=== PATIENT | male | born 1975 | race Caucasian/White ===

== ENCOUNTER 2020-07-01 09:18 | Outpatient (CLI) | payer MEDICARE, MEDICAID, SELFPAY ==
[2020-07-01 10:00] LABS: Basophils Percent Auto 0.7 % (0.2-1.2); Eosinophils Absolute Auto 0.3 K/mm3 (0-0.3); Eosinophils Percent Auto 4.6 % (0-4.4); Hematocrit 43.6 % (42.0-52.0); Hemoglobin 15.5 g/dL (14.0-18.0); Immature Granulocyte Absolute 0.02 K/mm3 (0.00-0.031); Immature Granulocyte Percent A 0.4 % (0-0.5); Lymphocytes Absolute Auto 2.13 K/mm3 (0.9-3.2); Lymphocytes Percent Auto 37.4 % (18.3-44.2); Mean Corpuscular HGB Conc 35.6 g/dl (32-36); Mean Corpuscular Hemoglobin 34.4 pg (26-34); Mean Corpuscular Volume 96.7 fl (80-100); Mean Platelet Volume 9.2 fl (7.4-10.4); Monocytes Absolute Auto 0.7 K/mm3 (0.1-0.6); Monocytes Percent Auto 12.8 % (2.6-8.5); Neutrophils Absolute Auto 2.5 K/mm3 (1.3-6.7); Neutrophils Percent Auto 44.1 % (45.5-73.1); Platelet Count Result 245 k/mm3 (150-375); Red Blood Count 4.51 M/mm3 (4.6-6.20); Red Cell Distribution Width 12.4 % (11.5-14.5); White Blood Count 5.7 K/mm3 (4.5-10.0)
[2020-07-01 10:12] LABS: Alanine Aminotransferase 22 U/L (4-50); Albumin Level 4.3 g/dL (3.5-5.1); Alkaline Phosphatase 39 U/L (38-126); Anion Gap 5 mmol/L (8-16); Aspartate Amino Transferase 20 U/L (17-59); Bilirubin,Total 0.2 mg/dL (0.2-1.3); Blood Urea Nitrogen 11 mg/dL (9-20); Calcium 9.1 mg/dL (8.4-10.2); Carbon Dioxide 30 mmol/L (22-30); Chloride 92 mmol/L (98-107); Estimated Glomerular Filt Rate > 60; Glucose 103 mg/dL (75-110); Sodium 127 mmol/L (137-145)
[2020-07-03 22:37] LABS: Carbamazepine Tegretol 9.4 mcg/mL (4.0-12.0)
[2020-07-04 14:27] LABS: Levetiracetam Keppra 22.8 mcg/mL (12.0-46.0)
== END 2020-07-01 09:19 | disposition home or self-care (01) ==
LOC: ANHLAB 09:29
PROVIDERS: PCP Internal Medicine
DX: Z79.899 Other long term (current) drug therapy (principal); G40.219 Localization-related (focal) (partial) symptomatic epilepsy and epileptic syndromes with complex partial seizures, intractable, without status epilepticus
CPT/HCPCS: 36415; 80053; 80156; 80164; 80165; 80177; 85025

== ENCOUNTER 2020-12-22 16:54 | Outpatient (CLI) | payer MEDICARE, MEDICAID, SELFPAY ==
[2020-12-22 17:33] LABS: Basophils Percent Auto 0.3 % (0.2-1.2); Eosinophils Absolute Auto 0.2 K/mm3 (0-0.3); Hematocrit 44.6 % (42.0-52.0); Hemoglobin 15.7 g/dL (14.0-18.0); Immature Granulocyte Absolute 0.04 K/mm3 (0.00-0.031); Immature Granulocyte Percent A 0.5 % (0-0.5); Lymphocytes Percent Auto 19.5 % (18.3-44.2); Mean Corpuscular HGB Conc 35.2 g/dl (32-36); Mean Corpuscular Hemoglobin 33.5 pg (26-34); Mean Corpuscular Volume 95.1 fl (80-100); Mean Platelet Volume 9.4 fl (7.4-10.4); Monocytes Absolute Auto 0.6 K/mm3 (0.1-0.6); Monocytes Percent Auto 7.1 % (2.6-8.5); Neutrophils Absolute Auto 6.1 K/mm3 (1.3-6.7); Neutrophils Percent Auto 70.6 % (45.5-73.1); Platelet Count Result 225 k/mm3 (150-375); Red Blood Count 4.69 M/mm3 (4.6-6.20); Red Cell Distribution Width 12.5 % (11.5-14.5); White Blood Count 8.7 K/mm3 (4.5-10.0)
[2020-12-22 17:44] LABS: Alanine Aminotransferase 21 U/L (4-50); Alkaline Phosphatase 44 U/L (38-126); Anion Gap 13 mmol/L (8-16); Aspartate Amino Transferase 24 U/L (17-59); Bilirubin,Total 0.4 mg/dL (0.2-1.3); Blood Urea Nitrogen 11 mg/dL (9-20); Calcium 9.4 mg/dL (8.4-10.2); Carbon Dioxide 23 mmol/L (22-30); Chloride 98 mmol/L (98-107); Estimated Glomerular Filt Rate > 60; Glucose 104 mg/dL (75-110); Potassium 4.1 mmol/L (3.4-5.0); Sodium 134 mmol/L (137-145)
[2020-12-28 16:53] LABS: Levetiracetam Keppra 14.1 mcg/mL (12.0-46.0)
[2020-12-29 06:52] LABS: Carbamazepine Tegretol 8.9 mcg/mL (4.0-12.0)
== END 2020-12-22 16:55 | disposition home or self-care (01) ==
PROVIDERS: PCP Internal Medicine
DX: G40.219 Localization-related (focal) (partial) symptomatic epilepsy and epileptic syndromes with complex partial seizures, intractable, without status epilepticus (principal)
CPT/HCPCS: 36415; 80053; 80156; 80164; 80165; 80177; 80346; 85025; G0480

== ENCOUNTER 2021-03-09 02:43 | Day surgery (SDC) | payer MEDICARE, MEDICAID, SELFPAY ==
[2021-02-24 13:08] VITALS: BMI 29.2
--- NOTE | 2021-03-09 07:30 | WPDANESEPPF ---
Anes - Initial Pre Proc Eval Procedure: Operation Date: 03/09/21 12:45 Proposed Procedures p Colonoscopy - Isaías Cohen MD Date/Time: 03/09/21 07:30 Surgeon: Isaías Cohen MD Pre Op Diagnosis: rectal bleeding Patient Data Age: 46 Gender: M Height: 1.75 m Weight: 90 kg Allergies Allergy/AdvReac Type Severity Reaction Status Date / Time Penicillins Allergy Unknown Rash Verified 03/09/21 11:36 Home Medications Medication Instructions Recorded Confirmed Type carbamazepine 200 mg tablet 200 mg PO TID tablet 01/14/21 02/24/21 History clonazepam 1 mg tablet 1.5 mg PO BID tablet 01/14/21 02/24/21 History lorazepam 0.5 mg tablet 0.5 mg PO DAILY PRN 01/14/21 02/24/21 History multivitamin 1 tablet PO DAILY 01/14/21 02/24/21 History divalproex 500 mg tablet,delayed 1,000 mg PO Q12H tablet 02/15/21 02/24/21 History release levetiracetam 750 mg tablet 750 mg PO BID tablet 02/15/21 02/24/21 History sildenafil (pulm.hypertension) 20 60 mg PO DAILY PRN #30 tablet MDD 02/15/21 02/24/21 Rx mg tablet 100mg per 24 hours Patient hx anesthesia problems: none Family hx anesthesia problems: none PMFSH Past Medical History Medical History (Updated 02/15/21 @ 13:39 by Lj Hawk DO) Chicken pox Seizure disorder Surgical History Surgical History (Updated 01/14/21 @ 11:38 by Duyen Hong CMA) History of placement of ear tubes 1983 Family History Family History (Updated 03/12/18 @ 08:12 by DOCTOR UNKNOWN) Mother Patient's mother is in good health Father Patient's father is in good health Social History Social History (Updated 02/15/21 @ 13:11 by Duyen Hong CMA) Smoking status: Former smoker Alcohol intake: never Substance use: current Substance use type: marijuana Living arrangements: with roommate(s) Spiritual care concerns: No Anes - Eval Final PreProcedure Day of Procedure 03/09/21 07:30 Patient weight: overweight Heart: regular rate and rhythm Lungs: clear to auscultation and normal air movement Airway: Mallampati scale class II Neurological: alert and oriented Last oral intake: >/= 8 hours ASA classification: III Emergent: no Anesthetic plan: proceed Anesthesia type and monitoring: general GIVS and standard monitoring Informed Consent: The patient's anesthetic plan and its attendant risks and benefits were discussed with the patient/family/POA. Questions were solicited and answers provided to the satisfaction of the patient/family/POA.
[2021-03-09 11:37] VITALS: BP 118/87; PULSE 63; RESP 18; TEMP 36.7; O2SAT 100
[2021-03-09] MEDS: LACTATED RINGERS 1,000 ML 150 ML IV CONT (11:50)
--- NOTE | 2021-03-09 12:02 | PM.HPGS ---
History of Present Illness History of Present Illness Consent: Risks, benefits, and alternatives have been discussed and questions answered. Patient agrees to proceed with procedure. Chief complaint: rectal bleeding Narrative: Ge Condon is a 46 year old male with intermittent rectal bleeding, never had colonoscopy Review of Systems Constitutional: Constitutional: Denies headache(s) and Denies weakness Eyes: Eyes: Denies blurry vision ENT: Reports Normal hearing present, Denies headache(s) and Denies neck pain Cardiovascular: Cardiovascular: Denies chest pain and Denies dyspnea Respiratory: Respiratory: Denies dyspnea Gastrointestinal: Gastrointestinal: Reports no additional gastrointestinal complaints Genitourinary: Genitourinary: Denies dysuria Musculoskeletal: Musculoskeletal: Denies neck pain Integumentary/Breasts: Skin/Breast: Denies dry skin Neurologic: Reports Normal hearing present, Denies headache(s) and Denies weakness Psychiatric: Psychiatric: Denies anxiety Endocrine: Endocrine: Denies change in body appearance Hematologic/Lymphatic: Hematologic/Lymphatic: Denies easy bleeding Allergic/Immunologic: Allergic/Immunologic: Denies urticaria PMFSH Past Medical History Medical History (Updated 02/15/21 @ 13:39 by Lj Hawk DO) Chicken pox Seizure disorder Surgical History Surgical History (Updated 01/14/21 @ 11:38 by Duyen Hong [facility]) History of placement of ear tubes 1983 Family History Family History (Updated 03/12/18 @ 08:12 by DOCTOR UNKNOWN) Mother Patient's mother is in good health Father Patient's father is in good health Social History Social History (Updated 02/15/21 @ 13:11 by Duyen Hong [facility]) Smoking status: Former smoker Alcohol intake: never Substance use: current Substance use type: marijuana Living arrangements: with roommate(s) Spiritual care concerns: No Meds Home Medications and Allergies Home Medications Medication Instructions Recorded Confirmed Type carbamazepine 200 mg tablet 200 mg PO TID tablet 01/14/21 02/24/21 History clonazepam 1 mg tablet 1.5 mg PO BID tablet 01/14/21 02/24/21 History lorazepam 0.5 mg tablet 0.5 mg PO DAILY PRN 01/14/21 02/24/21 History multivitamin 1 tablet PO DAILY 01/14/21 02/24/21 History divalproex 500 mg tablet,delayed 1,000 mg PO Q12H tablet 02/15/21 02/24/21 History release levetiracetam 750 mg tablet 750 mg PO BID tablet 02/15/21 02/24/21 History sildenafil (pulm.hypertension) 20 60 mg PO DAILY PRN #30 tablet MDD 02/15/21 02/24/21 Rx mg tablet 100mg per 24 hours Allergies Allergy/AdvReac Type Severity Reaction Status Date / Time Penicillins Allergy Unknown Rash Verified 03/09/21 11:36 Vital Signs Vital Signs - 24 hr 03/09/21 11:37 Temperature 98.0 F Pulse Rate 63 Respiratory Rate 18 Blood Pressure 118/87 Pulse Oximetry 100 Exam Const: General: comfortable and no acute distress HENMT: General nose exam: Normal nares present Eyes: General: appearance normal, both eyes and all related structures Neck: Neck: no JVD Resp: Auscultation: clear to auscultation bilaterally Cardio: Rate: regular rate Rhythm: regular rhythm GI: Inspection: non-distended GI Palp: Yes Soft to palpation Skin: General skin exam: normal color Neuro: General: gait normal Speech: normal speech Extrem: General: normal to inspection Psych: Mental Status: mental status grossly normal Assessment and Plan Assessment and plan (1) Rectal hemorrhage: Code(s): K62.5 - Hemorrhage of anus and rectum Status: Acute Assessment and Plan: colonoscopy
--- NOTE | 2021-03-09 12:10 | WPDANESEPPF ---
Anes - Initial Pre Proc Eval Procedure: Operation Date: 03/09/21 12:45 Proposed Procedures p Colonoscopy - Isaías Cohen MD Date/Time: 03/09/21 12:10 Surgeon: Isaías Cohen MD Pre Op Diagnosis: rectal bleeding Patient Data Age: 46 Gender: M Height: 1.75 m Weight: 91.5 kg Last Vital Signs Temp 98.0 F 03/09/21 11:37 Pulse 63 03/09/21 11:37 Resp 18 03/09/21 11:37 BP 118/87 03/09/21 11:37 Pulse Ox 100 03/09/21 11:37 Allergies Allergy/AdvReac Type Severity Reaction Status Date / Time Penicillins Allergy Unknown Rash Verified 03/09/21 11:36 Home Medications Medication Instructions Recorded Confirmed Type carbamazepine 200 mg tablet 200 mg PO TID tablet 01/14/21 02/24/21 History clonazepam 1 mg tablet 1.5 mg PO BID tablet 01/14/21 02/24/21 History lorazepam 0.5 mg tablet 0.5 mg PO DAILY PRN 01/14/21 02/24/21 History multivitamin 1 tablet PO DAILY 01/14/21 02/24/21 History divalproex 500 mg tablet,delayed 1,000 mg PO Q12H tablet 02/15/21 02/24/21 History release levetiracetam 750 mg tablet 750 mg PO BID tablet 02/15/21 02/24/21 History sildenafil (pulm.hypertension) 20 60 mg PO DAILY PRN #30 tablet MDD 02/15/21 02/24/21 Rx mg tablet 100mg per 24 hours Patient hx anesthesia problems: none Family hx anesthesia problems: none PMFSH Past Medical History Medical History (Updated 02/15/21 @ 13:39 by Lj Hawk DO) Chicken pox Seizure disorder Surgical History Surgical History (Updated 01/14/21 @ 11:38 by Duyen Hong CMA) History of placement of ear tubes 1983 Family History Family History (Updated 03/12/18 @ 08:12 by DOCTOR UNKNOWN) Mother Patient's mother is in good health Father Patient's father is in good health Social History Social History (Updated 02/15/21 @ 13:11 by Duyen oHng CMA) Smoking status: Former smoker Alcohol intake: never Substance use: current Substance use type: marijuana Living arrangements: with roommate(s) Spiritual care concerns: No Anes - Eval Final PreProcedure Day of Procedure 03/09/21 12:10 Patient weight: overweight Heart: regular rate and rhythm Lungs: clear to auscultation Airway: Mallampati scale class II Neurological: alert and oriented Last oral intake: >/= 8 hours ASA classification: III Emergent: no Anesthetic plan: proceed Anesthesia type and monitoring: general GIVS and standard monitoring Informed Consent: The patient's anesthetic plan and its attendant risks and benefits were discussed with the patient/family/POA. Questions were solicited and answers provided to the satisfaction of the patient/family/POA.
[2021-03-09 12:50] VITALS: BP 108/76; PULSE 53; RESP 14; O2SAT 98
[2021-03-09 13:00] VITALS: BP 110/85; PULSE 64; RESP 17; O2SAT 97
[2021-03-09 13:10] VITALS: BP 125/85; PULSE 56; RESP 17; O2SAT 100
== END 2021-03-09 13:20 | disposition home or self-care (01) ==
PROVIDERS: PCP Internal Medicine; Visit Provider Internal Medicine Gastroenterology
PROC: 0DJD8ZZ Inspection of Lower Intestinal Tract, Via Natural or Artificial Opening Endoscopic (ICD-10-PCS; CPT 45378; principal; 2021-03-09 12:45)
DX: K92.1 Melena (principal); D12.0 Benign neoplasm of cecum; D12.5 Benign neoplasm of sigmoid colon; K57.30 Diverticulosis of large intestine without perforation or abscess without bleeding; K64.8 Other hemorrhoids; G40.909 Epilepsy, unspecified, not intractable, without status epilepticus; Z87.891 Personal history of nicotine dependence; F12.90 Cannabis use, unspecified, uncomplicated
CPT/HCPCS: 45385; 88305; J2704; J7120

== ENCOUNTER 2021-05-25 10:49 | Inpatient (IN) | payer OTHER, SELFPAY ==
[2021-05-25] VITALS (11 sets, daily range): BP systolic 90–150; BP diastolic 50–105; PULSE 85–122; RESP 16–25; TEMP 36.6–37.7; O2SAT 94–100; BMI 32.6
--- NOTE | ~2021-05-25 | XR_ITS ---
EXAMINATION: XR lumbar puncture diagnostic EXAM DATE: 05/25/2021 15:08 INDICATION: Altered mental status. TECHNIQUE: Emergency room physician Katie Harrison MD obtained consent for this procedure verbally , reportedly from patient's daughter over the telephone. Radiologist Venkata Lew M.D. performed the procedure. Pulsed dose reduction fluoroscopy, with fluoroscopic time of 0.1 minutes. A total of 6 im ages obtained for the exam. DAP 0.36 Gycm2. 4 imaging technologist were present during this proce dure. A timeout procedure was performed. The back was prepped in standard sterile fashion with Betadine. L4-5 entry site was chosen under fluoroscopic guidance. The thecal sac was then accessed from a righ t paracentral approach using a 3.5 22G needle. Opening pressure determined to be 16 mmHg, normal. A total of 11 mL of clear cerebral spinal fluid we re then drained and placed in 4 consecutive vials which were labeled and sent to lab for analysis. T here were no immediate complications. IMPRESSION: Status post fluoroscopic guided lumbar puncture. Reviewed, dictated and finalized at location A. JOCKEY
--- NOTE | ~2021-05-25 | CT_ITS ---
EXAMINATION: CT facial & cervical spine wo DATE: 05/25/2021 11:22 INDICATION: Trauma. Altered mental status. History of seizure. TECHNIQUE: Computed tomography (CT) of the maxillofacial region and cervical spine was performed with out intravenous contrast. The dose-length product was 489.64 mGy-cm. Automated exposure control and i terative reconstruction technique were employed. COMPARISON: No prior studies for comparison. FINDINGS: MAXILLOFACIAL CT: There is scalp hematoma of the left frontal region. No acute maxillofacial fracture is identified. Ma ndible is intact. Pterygoid plates and zygomatic arch is within normal limits. Temporal mandibular alex ints are symmetric. There is mild mucosal thickening of the sinuses. CERVICAL SPINE CT: Normal cervical alignment. Odontoid process within normal limits. Craniovertebral junction within nor mal limits. Mild levocurvature of the cervical spine. No evidence for perched facet. No significant p araspinal soft tissue abnormality. IMPRESSION: 1. No acute abnormality of the facial bones or cervical spine. Reviewed, dictated and finalized at location B. CER
--- NOTE | ~2021-05-25 | XR_ITS ---
XR chest 1V portable 05/25/2021 11:42 Indication: Altered mental status. Poor historian. Procedure: AP portable chest Comparison: Comparison to multiple prior studies sequentially, with oldest reviewed study dated 11/07. Findings: Cardiomegaly with mild interstitial edema. No pleural effusion or pneumothorax. No acute os seous abnormality. Impression: 1: Cardiomegaly with mild interstitial edema. Reviewed, dictated and finalized at location B. NISTRATIVE COORDINATOR Impression: 1: Cardiomegaly with mild interstitial edema.
--- NOTE | ~2021-05-25 | XR_ITS ---
EXAMINATION: XR chest 1V portable DATE: 05/26/2021 05:55 INDICATION: Elevated troponins TECHNIQUE: frontal view of the chest was obtained. COMPARISON: Chest radiograph dated 05/25/2021 FINDINGS: The lungs remain clear with no focal airspace opacities, pulmonary edema, pleural effusion or pneumot horax. The cardiomediastinal silhouette is normal. Visualized bones and soft tissues are unremarkable . IMPRESSION: 1. No acute cardiopulmonary disease. Reviewed, dictated and finalized at location A. TER SKI EDGE
--- NOTE | ~2021-05-25 | US_ITS ---
US abdomen limited INDICATION: Elevated liver function tests PROCEDURE: Realtime right upper abdominal ultrasound. COMPARISON: No prior studies for comparison. FINDINGS: The pancreas is normal without focal mass or pancreatic ductal dilation. Liver echotexture is normal without focal mass or intrahepatic biliary dilatation. There is normal directional flow i n the portal vein. The gallbladder is normal without stones, gallbladder wall thickening or pericholecystic fluid. Comm on bile duct measures 4.6 mm. No sonographic Julien's sign. IMPRESSION: 1: Normal limited abdominal ultrasound. Reviewed, dictated and finalized at location B. GROUND OPERATOR
--- NOTE | ~2021-05-25 | CT_ITS ---
EXAMINATION: CT brain wo con DATE: 05/25/2021 11:22 INDICATION: Altered mental status TECHNIQUE: Computed tomography (CT) of the head was performed without intravenous contrast. The dose- length product was 1059.33 mGy-cm. Automated exposure control and iterative reconstruction technique were employed. COMPARISON: CT dated 03/21/2016 FINDINGS: There is chronic right parietal, occipital and temporal lobe infarctions with encephalomala leslie. No ventriculomegaly or midline shift. No acute intracranial hemorrhage, infarction, mass or mass effect. Basilar cisterns are patent. Paranasal sinuses are unremarkable. No depressed skull fracture s. IMPRESSION: 1. No acute intracranial abnormality. 2: Chronic large infarction with encephalomalacia involving the right parietal, occipital and tempor al lobes. Reviewed, dictated and finalized at location B. FICIAL LIMB FITTER IMPRESSION: 1. No acute intracranial abnormality. 2: Chronic large infarction with encephalomalacia involving the right parietal , occipital and temporal lobes.
[2021-05-25] MEDS: LORazepam INJ (*CRX) 2 MG/ML VIAL IV PUSH (10:55)
--- NOTE | 2021-05-25 10:58 | ECG_ITS ---
Measurements Intervals [place] Rate: 96 P: 42 [place]: 160 QRS: -37 QRSD: 101 T: 64 QT: 360 QTc: 457 Interpretive Statements SINUS RHYTHM LEFT AXIS DEVIATION BORDERLINE ST ABNORMALITY- ANTEROLATERAL LEADS BORDERLINE ECG Electronically Signed On 05-25-2021 12:37:36 RESEARCH STATISTICIAN by Brannon Martinez D.O.
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
[2021-05-25 11:51] LABS: Basophils Percent Auto 0.2 % (0.2-1.2); Hematocrit 46.1 % (42.0-52.0); Hemoglobin 17.4 g/dL (14.0-18.0); Immature Granulocyte Absolute 0.11 K/mm3 (0.00-0.031); Immature Granulocyte Percent A 0.6 % (0-0.5); Lymphocytes Absolute Auto 0.88 K/mm3 (0.9-3.2); Lymphocytes Percent Auto 4.5 % (18.3-44.2); Mean Corpuscular HGB Conc 37.7 g/dl (32-36); Mean Corpuscular Hemoglobin 33.9 pg (26-34); Mean Corpuscular Volume 89.7 fl (80-100); Mean Platelet Volume 9.6 fl (7.4-10.4); Monocytes Absolute Auto 2.9 K/mm3 (0.1-0.6); Monocytes Percent Auto 14.8 % (2.6-8.5); Neutrophils Absolute Auto 15.6 K/mm3 (1.3-6.7); Neutrophils Percent Auto 79.9 % (45.5-73.1); Platelet Count Result 281 k/mm3 (150-375); Red Blood Count 5.14 M/mm3 (4.6-6.20); Red Cell Distribution Width 12.6 % (11.5-14.5); White Blood Count 19.5 K/mm3 (4.5-10.0)
[2021-05-25 11:52] LABS: Acetaminophen < 10 ug/mL (10-30); Ammonia < 9 umol/L (9-30); Ethanol < 10 mg/dL (<10); Salicylate < 1.0 mg/dL (2-20)
--- NOTE | 2021-05-25 11:58 | PC.NURSE ---
Addendum entered by Dina Ortiz RN 05/25/21 11:58: VORB at 1055 Original Note: VORB from Dr. Harrison to pull 2 mg Ativan for patient
[2021-05-25] MEDS: SODIUM CHLORIDE 0.9% IV 1,000 ML 999 ML IV CONT ×4 (11:59→15:49)
[2021-05-25 12:05] LABS: Lactic Acid Reflex 2.7 mmol/L (0.7-2.1)
[2021-05-25 12:07] LABS: Prothrombin Time 13.2 Seconds (11.1-14.7)
[2021-05-25 12:08] LABS: Alanine Aminotransferase 81 U/L (4-50); Albumin Level 5.3 g/dL (3.5-5.1); Alkaline Phosphatase 55 U/L (38-126); Anion Gap 13 mmol/L (8-16); Aspartate Amino Transferase 298 U/L (17-59); Blood Urea Nitrogen 16 mg/dL (9-20); Calcium 10.4 mg/dL (8.4-10.2); Carbon Dioxide 22 mmol/L (22-30); Chloride 96 mmol/L (98-107); Estimated CRCL calculation 102 ml/min; Estimated Glomerular Filt Rate > 60; Glucose 128 mg/dL (65-110); Partial Thromboplastin Time 27.6 SECONDS (22.3-36.8); Potassium 3.3 mmol/L (3.4-5.0); Sodium 131 mmol/L (137-145)
[2021-05-25 12:08] LABS: Amphetamine Screen Urine Negative (Negative); Barbiturate Screen Urine Negative (Negative); Benzodiazepines Screen Urine Negative (Negative); Cannabinoid Screen Urine Positive (Negative); Cocaine Screen Urine Negative (Negative); Methadone Screen Urine Negative (Negative); Opiate Screen Urine Negative (Negative); Phencyclidine Screen Urine Negative (Negative)
[2021-05-25 12:12] LABS: Add Urine Microscopic? YES; Appearance Urine Cloudy (Clear); Bacteria Urine Trace /hpf; Bilirubin Urine Negative (Negative); Blood Urine 3+ (Negative); Color Urine Amber (Yellow); Glucose Urine UA Negative (Negative); Hyaline Casts Urine 20-29 /lpf; Ketones Urine 1+ mg/dL (Negative); Leukocyte Esterase Ur Negative LEU/UL (Negative); Mucus Urine Few /lpf; Nitrate Urine Negative (Negative); Protein Urine 3+ mg/dL (Negative); Specific Grav Ur 1.025 (1.001-1.035); Urobilinogen Urine Negative mg/dL (<2.0)
[2021-05-25 12:32] LABS: Valproic Acid 13.8 ug/mL (50-120)
[2021-05-25] MEDS: fentaNYL CITRATE INJ (*CRX) 100 MCG/2 ML VIAL 50 MCG IV PUSH (13:28)
[2021-05-25] MEDS: LORazepam INJ (*CRX) 2 MG/ML VIAL 1 MG IV PUSH (13:28)
[2021-05-25 13:44] LABS: CRP 4.7 mg/dL (<1.0)
[2021-05-25 13:45] LABS: Creatine Kinase > 16000 U/L (55-170)
[2021-05-25 13:50] LABS: NT Pro B Type Natriuretic Pept 5140 pg/mL (5-100)
--- NOTE | 2021-05-25 14:04 | PC.NURSE ---
Consent obtained by phone from patients sister Lady by Dr. Harrison for lumbar puncture
--- NOTE | 2021-05-25 14:20 | PC.NURSE ---
Pt to radiology for LP
[2021-05-25 14:45] LABS: Reflex Lactic Acid Yes or No Add Lactic
[2021-05-25] MEDS: ACYCLOVIR SODIUM IVPB 800 MG in DEXTROSE 5% IN WATER 250 ML 266 MG IVPB ×2 (15:00→22:03)
[2021-05-25 15:17] LABS: Glucose CSF 90 mg/dL (40-70); Total Protein CSF 65 mg/dL (12-60)
--- NOTE | 2021-05-25 15:25 | WPDCNINT ---
Assessment and Plan Assessment and plan (1) Sepsis: Code(s): A41.9 - Sepsis, unspecified organism Status: Acute Assessment and Plan: Patient has elevated WBC, lactic acid afebrile making his diagnosis consistent with sepsis Although these findings can be explained by seizures or status epilepticus, there is no obvious history of either happening this morning or last night Other possible etiologies are either meningitis or encephalitis Patient has gone for LP by IR under guidance He has been started on dexamethasone, empiric antibiotics in the form of cefepime, vancomycin and acyclovir which will be continued Patient received IV fluids which will be continued Monitor lactic acid level Blood cultures, urine culture (2) Rhabdomyolysis: Code(s): M62.82 - Rhabdomyolysis Status: Acute Assessment and Plan: Etiology unknown although seizures or status epilepticus can explain Other possibility is trauma or fall as patient has a bruise on his left forehead but patient denies any history consistent consistent with fight or trauma IV fluids with bicarb although will have to be cautious with IV fluids as patient has elevated BNP and congestion on his chest x-ray although patient is on room air and has no respiratory distress (3) Elevated troponin: Code(s): R77.8 - Other specified abnormalities of plasma proteins Status: Acute Assessment and Plan: Patient does not report any chest pain although history is unreliable Check echo, serial troponin Start aspirin and metoprolol Hold statin who elevated LFTs Hold anticoagulation as patient is getting lumbar puncture done today cardiology consulted in ED EKG reviewed (4) Seizure disorder: Code(s): G40.909 - Epilepsy, unspecified, not intractable, without status epilepticus Status: Acute Assessment and Plan: Valproic level is sub therapeutic Check carbamazepine level Continue home medications of carbamazepine, Keppra and valproic acid Seizure precaution P.r.n. Ativan (5) Encephalopathy: Code(s): G93.40 - Encephalopathy, unspecified Status: Acute Assessment and Plan: Etiology is not clear and limited history has made it difficult. I suspect patient does have some baseline psychiatric disorder or this could be from meningitis encephalitis or postictal after seizure. But patient does not have classical presentation as he is alert awake following commands but does not provide any meaningful history. Ammonia and TSH was normal Head CT was Avoid sedatives Seizure precaution Resumes his anti epileptic drugs and check Tegretol level. His valproic acid level was subtherapeutic Await LB results and treat empirically for meningitis and encephalitis (6) Elevated liver enzymes: Code(s): R74.8 - Abnormal levels of other serum enzymes Status: Acute Assessment and Plan: Elevated liver enzymes likely secondary to rhabdomyolysis Monitor for now (7) Electrolyte abnormality: Code(s): E87.8 - Other disorders of electrolyte and fluid balance, not elsewhere classified Status: Acute Assessment and Plan: Replace Potassium Additional Plan DVT prophylaxis -Lovenox subQ Code Status - Full Code I tried to call patient's dad to obtain more history but no answer on the phone number listed [employer] Consult Note Consult date: 05/26/21 HPI: Ge Condon is a 46 year old male with past medical history of encephalitis diagnosis more than 20 years ago and resultant epilepsy who is managed at [facility] epilepsy center and is on multiple AEDs was brought in with altered mental status. Patient himself is unable to provide any meaningful history and history was obtained from ER physician sign-out and chart. Per ED physician, EMS was called to the patient's residence this morning for evaluation of altered mental status, panic attack. At the time of assessment, patient was a
[2021-05-25] MEDS: KCL 40 MEQ/WATER 100 ML 100 ML 25 ML IVPB (15:49)
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
[2021-05-25 15:51] LABS: CSF source CSF
[2021-05-25 15:52] LABS: Appearance CSF Clear (Clear); Color CSF Colorless (Colorless); Lymphocytes CSF 54 % (40-80); Monocytes CSF 46 % (15-45); Nucleated Cell CSF 11 /uL (0-5); Red Blood Cell CSF 32 (0-2)
--- NOTE | 2021-05-25 16:24 | PC.NURSE ---
Pt sent to ICU with vancomycin, KCL and IVF infusing
--- NOTE | 2021-05-25 16:25 | ADMGEN ---
This patient, Ge Condon, was admitted to Intensive Care Unit-8 at 1620 on 05/25/2021. Report received from Darshana. Patient/family oriented to hospital policies and general routines including ID bracelet, bed and alarms, visiting hours, pain management, procedures, bathroom and other care routines, personal items, smoking policy, roomservice/diet, and visiting hours. Information on how to activate the Rapid Response Team has been discussed. Patient/Family are encouraged to report perceived risks to care and to ask questions if they do not understand what they are told or what they should do.
[2021-05-25] MEDS: SODIUM BICARBONATE 8.4% 150 MEQ in WATER, STERILE FOR INJECTION 950 ML 125 MEQ IV CONT (16:41)
[2021-05-25] MEDS: ASPIRIN 325 MG TABLET PO (16:41)
[2021-05-25] MEDS: DIVALPROEX SODIUM DR 250 MG TABEC 1000 MG PO (16:42)
[2021-05-25 17:15] LABS: Lactic Acid 1.8 mmol/L (0.7-2.1); Lactic Acid Reflex 1.8 mmol/L (0.7-2.1)
[2021-05-25 17:22] LABS: Anion Gap 10 mmol/L (8-16); Blood Urea Nitrogen 10 mg/dL (9-20); Calcium 8.9 mg/dL (8.4-10.2); Carbon Dioxide 19 mmol/L (22-30); Chloride 101 mmol/L (98-107); Estimated CRCL calculation 146 ml/min; Estimated Glomerular Filt Rate > 60; Glucose 143 mg/dL (65-110); Potassium 3.8 mmol/L (3.4-5.0); Sodium 130 mmol/L (137-145)
[2021-05-25] MEDS: LORazepam INJ (*CRX) 2 MG/ML VIAL 5 MG IV PUSH (18:53)
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
[2021-05-25] MEDS: METOPROLOL TARTRATE 25 MG TABLET PO (20:19)
[2021-05-25] MEDS: levETIRAcetam Tablet 250 MG, levETIRAcetam Tablet 500 MG 750 MG PO (20:22)
[2021-05-25 21:11] LABS: Anion Gap 8 mmol/L (8-16); Blood Urea Nitrogen 9 mg/dL (9-20); Calcium 8.6 mg/dL (8.4-10.2); Carbon Dioxide 22 mmol/L (22-30); Chloride 100 mmol/L (98-107); Estimated CRCL calculation 172 ml/min; Estimated Glomerular Filt Rate > 60; Glucose 125 mg/dL (65-110); Phosphorus 3.2 mg/dL (2.5-4.5); Potassium 3.9 mmol/L (3.4-5.0); Sodium 130 mmol/L (137-145)
[2021-05-25] MEDS: carBAMazepine 200 MG TABLET PO (22:04)
[2021-05-25 22:18] LABS: HAV RESULT Negative (Negative); Hepatitis B Core IgM Result Negative (Negative); Hepatitis B Surface Antigen Negative (Negative)
[2021-05-25 22:52] LABS: Hepatitis C Virus Antibody Negative (Negative)
[2021-05-26] VITALS (13 sets, daily range): BP systolic 108–136; BP diastolic 71–100; PULSE 74–96; RESP 16–20; TEMP 36.3–36.7; O2SAT 93–98
[2021-05-26] MEDS: SODIUM BICARBONATE 8.4% 150 MEQ in WATER, STERILE FOR INJECTION 950 ML 125 MEQ IV CONT ×3 (01:20→21:42)
[2021-05-26 05:11] LABS: Basophils Percent Auto 0.2 % (0.2-1.2); Eosinophils Percent Auto 0.1 % (0-4.4); Hematocrit 38.5 % (42.0-52.0); Hemoglobin 14.4 g/dL (14.0-18.0); Immature Granulocyte Absolute 0.06 K/mm3 (0.00-0.031); Immature Granulocyte Percent A 0.4 % (0-0.5); Lymphocytes Absolute Auto 2.04 K/mm3 (0.9-3.2); Lymphocytes Percent Auto 13.7 % (18.3-44.2); Mean Corpuscular HGB Conc 37.4 g/dl (32-36); Mean Corpuscular Hemoglobin 34.4 pg (26-34); Mean Corpuscular Volume 91.9 fl (80-100); Mean Platelet Volume 9.3 fl (7.4-10.4); Monocytes Absolute Auto 2.2 K/mm3 (0.1-0.6); Monocytes Percent Auto 14.7 % (2.6-8.5); Neutrophils Absolute Auto 10.6 K/mm3 (1.3-6.7); Neutrophils Percent Auto 70.9 % (45.5-73.1); Platelet Count Result 204 k/mm3 (150-375); Red Blood Count 4.19 M/mm3 (4.6-6.20); Red Cell Distribution Width 13.2 % (11.5-14.5); White Blood Count 14.9 K/mm3 (4.5-10.0)
[2021-05-26 05:31] LABS: Alanine Aminotransferase 71 U/L (4-50); Alkaline Phosphatase 37 U/L (38-126); Anion Gap 6 mmol/L (8-16); Aspartate Amino Transferase 153 U/L (17-59); Bilirubin,Total 0.9 mg/dL (0.2-1.3); Blood Urea Nitrogen 9 mg/dL (9-20); Calcium 8.7 mg/dL (8.4-10.2); Carbon Dioxide 26 mmol/L (22-30); Chloride 98 mmol/L (98-107); Estimated CRCL calculation 146 ml/min; Estimated Glomerular Filt Rate > 60; Glucose 107 mg/dL (65-110); Magnesium 1.9 mg/dL (1.6-2.3); Phosphorus 3.2 mg/dL (2.5-4.5); Potassium 3.6 mmol/L (3.4-5.0); Sodium 130 mmol/L (137-145)
--- NOTE | 2021-05-26 06:00 | ECHO_ITS ---
Patient Info Name: Ge Condon Age: 46 years : 1975 Gender: Male Ht: 68 in Wt: 214 lbs BSA: 2.19 m2 HR: 78 bpm BP: 132 / 90 mmHg Heart Rhythm: Sinus Rhythm Technical Quality: Good Exam Date: 05/26/2021 3:52 PM Exam Location: [facility] Pulmonary Exam Room: 305 Patient Status: Inpatient Admit Date: 05/25/2021 Staff Ordering Physician: Katie Harrison MD Upstairs Maid: Aniya Blanco RDCS Attending Provider: Niall Rocha MD Referring Physician: Hunter RICHARDSON; Exam Type: CA echo doppler color flow Study Info Indications - ELEVATED TROPONINS Complete two-dimensional, color flow and Doppler transthoracic echocardiogram is performed. Summary 1. Complete two-dimensional, color flow and Doppler transthoracic echocardiogram is performed. 2. Normal left ventricular size with mild concentric hypertrophy. Good systolic function of all segments with an ejection fraction of 60-65%. Normal diastolic function. 3. There is mild mitral valve regurgitation. 4. Left atrial chamber dimension is mildly enlarged. 5. No pulmonary hypertension, estimated pulmonary arterial systolic pressure is 32 mmHg. 6. Normal sinus rhythm. Left Ventricle Left ventricular chamber dimension is normal. Left ventricular systolic function is normal, estimated at 60-65%. There is mildly increased left ventricular wall thickness. Left ventricular septal wall motion is normal. The left ventricular diastolic function is normal. Right Ventricle Right ventricular chamber dimension is normal. Right ventricular systolic function is normal. Left Atria Left atrial chamber dimension is mildly enlarged. Right Atria Right atrial chamber dimension is normal. Aortic Valve The aortic valve is trileaflet. There is no aortic valve sclerosis. There is no aortic valve stenosis. There is no aortic valve regurgitation. Pulmonic Valve The pulmonic valve is normal. There is no pulmonic valve stenosis. There is no pulmonic regurgitation. Mitral Valve The mitral valve has normal leaflets. There is no mitral valve stenosis. There is mild mitral valve regurgitation. Tricuspid Valve The tricuspid valve leaflets are normal. There is no significant tricuspid valve stenosis. There is trace tricuspid valve regurgitation. No pulmonary hypertension, estimated pulmonary arterial systolic pressure is 32 mmHg. Pericardium/Pleural The pericardium appears normal. There is no pericardial effusion. Inferior Vena Cava Normal inferior vena cava with >50% collapse upon inspiration consistent with Empty right atrial pressure, 10 mmHg. Aorta The aortic root size at the sinus of Valsalva is normal. The prox ascending aorta size is normal. Left Ventricular Outflow Tract Name Value Normal LVOT 2D LVOT Diameter 2.1 cm LVOT Doppler LVOT Peak Gradient 6 mmHg LVOT Mean Gradient 3 mmHg LVOT VTI 22 cm LVOT VTI/AV VTI Ratio 0.9 LVOT Stroke Volume 74 ml
[2021-05-26 06:31] LABS: Folic Acid 8.7 ng/mL (2.76->20)
[2021-05-26] MEDS: carBAMazepine 200 MG TABLET PO ×3 (06:40→22:20)
[2021-05-26] MEDS: ACYCLOVIR SODIUM IVPB 800 MG in DEXTROSE 5% IN WATER 250 ML 266 MG IVPB ×3 (06:41→22:18)
--- NOTE | 2021-05-26 07:00 | ECG_ITS ---
Measurements Intervals [place] Rate: 74 P: 33 WA: 152 QRS: -25 QRSD: 100 T: 29 QT: 415 QTc: 463 Interpretive Statements SINUS RHYTHM CANNOT RULE OUT SEPTAL INFARCT, AGE INDETERMINATE ABNORMAL ECG Electronically Signed On 05-26-2021 13:10:34 SURVEY SUPERINTENDENT by Brannon Martinez D.O.
[2021-05-26 07:03] LABS: Creatine Kinase 7797 U/L (55-170)
[2021-05-26] MEDS: DIVALPROEX SODIUM DR 250 MG TABEC 1000 MG PO ×2 (07:44→17:29)
[2021-05-26] MEDS: METOPROLOL TARTRATE 25 MG TABLET PO ×2 (07:44→21:43)
[2021-05-26] MEDS: levETIRAcetam Tablet 250 MG, levETIRAcetam Tablet 500 MG 750 MG PO ×2 (07:44→21:43)
[2021-05-26] MEDS: ASPIRIN 325 MG TABLET PO (07:44)
[2021-05-26] MEDS: ENOXAPARIN 40 MG/0.4 ML SYRINGE SUB-Q (07:44)
[2021-05-26] MEDS: POTASSIUM CHLORIDE 20 MEQ TABLET 40 MEQ PO (07:44)
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
[2021-05-26 17:19] LABS: Blood Urea Nitrogen 9 mg/dL (9-20); Calcium 6.3 mg/dL (8.4-10.2); Carbon Dioxide > 40 mmol/L (22-30); Chloride 79 mmol/L (98-107); Estimated CRCL calculation 179 ml/min; Estimated Glomerular Filt Rate > 60; Glucose 102 mg/dL (65-110); Magnesium 1.4 mg/dL (1.6-2.3); Phosphorus 1.9 mg/dL (2.5-4.5); Potassium 2.8 mmol/L (3.4-5.0); Sodium 123 mmol/L (137-145)
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
[2021-05-26] MEDS: KCL 40 MEQ/WATER 100 ML 100 ML 25 ML IVPB (21:43)
[2021-05-26] MEDS: clonazePAM (*CRX) 0.5 MG TABLET 1.5 MG PO (21:43)
[2021-05-26] MEDS: POTASSIUM CHLORIDE 20 MEQ PACKET (FOR LIQUID) 40 MEQ PO (21:43)
[2021-05-26] MEDS: cefTRIAXone 2 GM in SODIUM CHLORIDE 0.9% IV 100 ML 200 ML IVPB (21:44)
[2021-05-27] VITALS (8 sets, daily range): BP systolic 100–110; BP diastolic 66–77; PULSE 65–75; RESP 17–18; TEMP 36.1–36.9; O2SAT 93–97
[2021-05-27 01:51] LABS: Vancomycin Trough 5.7 ug/mL (10.0-20.0)
[2021-05-27] MEDS: ACYCLOVIR SODIUM IVPB 800 MG in DEXTROSE 5% IN WATER 250 ML 266 MG IVPB ×2 (05:58→13:27)
[2021-05-27] MEDS: carBAMazepine 200 MG TABLET PO ×2 (06:00→13:27)
[2021-05-27 06:41] LABS: Basophils Absolute Auto 0.1 K/mm3 (0.0-0.1); Basophils Percent Auto 0.5 % (0.2-1.2); Eosinophils Absolute Auto 0.1 K/mm3 (0-0.3); Eosinophils Percent Auto 0.5 % (0-4.4); Hematocrit 39.7 % (42.0-52.0); Hemoglobin 13.6 g/dL (14.0-18.0); Immature Granulocyte Absolute 0.04 K/mm3 (0.00-0.031); Immature Granulocyte Percent A 0.4 % (0-0.5); Lymphocytes Absolute Auto 2.13 K/mm3 (0.9-3.2); Lymphocytes Percent Auto 21.8 % (18.3-44.2); Mean Corpuscular HGB Conc 34.3 g/dl (32-36); Mean Corpuscular Hemoglobin 33.4 pg (26-34); Mean Corpuscular Volume 97.5 fl (80-100); Mean Platelet Volume 9.6 fl (7.4-10.4); Monocytes Absolute Auto 1.2 K/mm3 (0.1-0.6); Monocytes Percent Auto 12.4 % (2.6-8.5); Neutrophils Absolute Auto 6.3 K/mm3 (1.3-6.7); Neutrophils Percent Auto 64.4 % (45.5-73.1); Platelet Count Result 178 k/mm3 (150-375); Red Blood Count 4.07 M/mm3 (4.6-6.20); Red Cell Distribution Width 13.3 % (11.5-14.5); White Blood Count 9.8 K/mm3 (4.5-10.0)
[2021-05-27] MEDS: DIVALPROEX SODIUM DR 250 MG TABEC 1000 MG PO (08:10)
[2021-05-27] MEDS: ASPIRIN 325 MG TABLET PO (08:10)
[2021-05-27] MEDS: ENOXAPARIN 40 MG/0.4 ML SYRINGE SUB-Q (08:11)
[2021-05-27] MEDS: MULTIVITAMINS THERAPEUTIC TAB (*BKC) 1 TABLET PO (08:11)
[2021-05-27] MEDS: levETIRAcetam Tablet 250 MG, levETIRAcetam Tablet 500 MG 750 MG PO (08:11)
[2021-05-27] MEDS: METOPROLOL TARTRATE 25 MG TABLET PO (08:11)
[2021-05-27] MEDS: cefTRIAXone 2 GM in SODIUM CHLORIDE 0.9% IV 100 ML 200 ML IVPB (08:15)
[2021-05-27] MEDS: clonazePAM (*CRX) 0.5 MG TABLET 1.5 MG PO (08:22)
[2021-05-27 08:49] LABS: Alanine Aminotransferase 77 U/L (4-50); Albumin Level 3.8 g/dL (3.5-5.1); Alkaline Phosphatase 36 U/L (38-126); Anion Gap 7 mmol/L (8-16); Aspartate Amino Transferase 91 U/L (17-59); Bilirubin,Total 0.8 mg/dL (0.2-1.3); Blood Urea Nitrogen 8 mg/dL (9-20); Calcium 8.7 mg/dL (8.4-10.2); Carbon Dioxide 25 mmol/L (22-30); Chloride 98 mmol/L (98-107); Estimated CRCL calculation 125 ml/min; Estimated Glomerular Filt Rate > 60; Glucose 117 mg/dL (65-110); Magnesium 1.9 mg/dL (1.6-2.3); Phosphorus 2.5 mg/dL (2.5-4.5); Sodium 130 mmol/L (137-145)
[2021-05-27] MEDS: SODIUM BICARBONATE 8.4% 150 MEQ in WATER, STERILE FOR INJECTION 950 ML 125 MEQ IV CONT (10:55)
--- NOTE | 2021-05-27 11:02 | WPDNEUROPN ---
Progress Note: A&P Additional Plan treatment continued as such Time Spent With Patient Time with patient: less than 15 minutes Subjective Date/time seen: 05/27/21 11:02 seizure disorder with subtherapeutic anticonvulsant level at the time of admission routine lab is fairly normal serum sodium is improving now it is 130, cultures up until now are negative Review of Systems Review of Systems: All systems reviewed & are unremarkable except as noted in HPI and below Exam Narrative: remains awake alert head normocephalic ears nose throat examination normal neck supple heart regular lungs clear abdomen is soft neurologically normal mental status normal speech the cranial examination is normal motor and sensory exam unchanged reflexes in unchanged Objective Data Vital Signs Vital Signs: Vital Signs - 24 hr 05/26/21 11:11 05/26/21 12:00 05/26/21 20:00 Temperature 36.7 C Pulse Rate 74 77 79 Respiratory Rate 16 Blood Pressure 108/71 Pulse Oximetry 95 05/26/21 21:43 05/26/21 22:00 05/27/21 00:00 Temperature 36.3 C L Pulse Rate 77 80 74 Respiratory Rate 18 Blood Pressure 125/80 Pulse Oximetry 98 05/27/21 04:00 05/27/21 06:00 05/27/21 08:00 Temperature 36.1 C L Pulse Rate 75 68 70 Respiratory Rate 18 Blood Pressure 110/77 Pulse Oximetry 97 05/27/21 08:11 Temperature Pulse Rate 72 Respiratory Rate Blood Pressure Pulse Oximetry Intake/Output Intake/Output: Intake & Output 05/24/21 05/25/21 05/26/21 05/27/21 23:59 23:59 23:59 23:59 Intake Total 3989 1723 2490 Output Total 700 2000 Balance 6355 6313 2490 Meds/Results Medications: Active Medications Generic Name Dose Route Start Last Admin Trade Name Freq PRN Reason Stop Dose Admin Aspirin 325 mg 05/25/21 17:00 05/27/21 08:10 Aspirin 325 Mg Tablet PO 325 mg DAILY@0800 JAZMIN Administration Carbamazepine 200 mg 05/25/21 22:00 05/27/21 06:00 Carbamazepine 200 Mg Tablet PO 200 mg Q8HR JAZMIN Administration Clonazepam 1.5 mg 05/26/21 21:00 05/27/21 08:22 Clonazepam (*Crx) 0.5 Mg Tablet PO 1.5 mg Q12HR JAZMIN Administration Divalproex Sodium 1,000 mg 05/25/21 17:00 05/27/21 08:[address] 250 Mg Tabec PO 1,000 mg BIDWM JAZMIN Administration Enoxaparin Sodium 40 mg 05/26/21 09:00 05/27/21 08:11 Enoxaparin 40 Mg/0.4 Ml Syringe SUB-Q 40 mg DAILY JAZMIN Administration Acyclovir Sodium 800 mg/ 266 mls @ 266 mls/hr 05/25/21 22:00 05/27/21 05:58 Dextrose IVPB 266 mls/hr Q8HR JAZMIN Administration Sodium Bicarbonate 150 meq/ 1,100 mls @ 125 mls/hr 05/25/21 16:30 05/27/21 10:55 Sterile Water IV CONT 125 mls/hr .Q8H48M JAZMIN Administration Ceftriaxone Sodium 2 gm/ 100 mls @ 200 mls/hr 05/26/21 21:00 05/27/21 08:45 Sodium Chloride IVPB Infused Q12HR JAZMIN Infusion Vancomycin HCl 1,750 mg in 500 mls @ 250 mls/hr 05/27/21 03:00 05/27/21 05:05 Vancomycin 1,750 Mg/D5w 500 Ml IVPB Infused Q12H JAZMIN Infusion Levetiracetam 250 mg/ 750 mg 05/25/21 21:00 05/27/21 08:11 Levetiracetam 500 mg PO 750 mg Q12HR JAZMIN Administration Lorazepam 5 mg 05/25/21 14:49 05/25/21 18:53 Lorazepam Inj (*Crx) 2 Mg/Ml Vial IV PUSH 5 mg Q1H PRN Administration Seizure Activity Lorazepam 0.5 mg 05/26/21 19:20 Lorazepam (*Crx) 0.5 Mg Tablet PO DAILY PRN Seizures Metoprolol Tartrate 25 mg 05/25/21 21:00 05/27/21 08:11 Metoprolol Tartrate 25 Mg Tablet PO 25 mg Q12HR JAZMIN Administration Miscellaneous Information 0 each 05/26/21 00:01 Can Sildenafil Be Held While Patient Is In Hospital? XX 06/25/21 00:00 CLARIFY JAZMIN Multivitamins Therapeutic 1 tablet 05/27/21 09:00 05/27/21 08:11 Multivitamins Therapeutic Tab (*Bkc) PO 1 tablet DAILY JAZMIN Administration Non-Formulary Medication 60 mg 05/26/21 19:20 Sildenafil (Pulm.Hypertension) PO DAILY PRN sexual activity Ondansetron H
--- NOTE | 2021-05-27 13:38 | PM.IMPN ---
Progress Note: A&P Assessment and Plan (1) Sepsis: Code(s): A41.9 - Sepsis, unspecified organism Status: Acute Assessment and Plan: Improving; patient is stable hemodynamically and afebrile. His mentation has improved significantly has a he is now awake alert and oriented x3. Herpes from the CSF is negative and we will stop acyclovir. EBV, VDRL and West Nile studies of the CSF are pending at the time of this dictation. Patient presented with elevated WBC, lactic acid afebrile making his diagnosis consistent with sepsis Although these findings can be explained by seizures or status epilepticus, there is no obvious history of either happening this morning or last night Other possible etiologies are either meningitis or encephalitis Patient had LP done by IR under guidance He has been started on dexamethasone, empiric antibiotics in the form of cefepime, vancomycin and acyclovir which will be continued Patient received IV fluids which will be continued Lactic acid level has normal Blood cultures, urine culture have been sent and are pending. Her press type 2 and her past I have to not detected on the PCR of the CSF. VDRL, EBV and West Nile studies of the CSF are pending at the time of this dictation. (2) Rhabdomyolysis: Code(s): M62.82 - Rhabdomyolysis Status: Acute Assessment and Plan: Etiology unknown although seizures or status epilepticus can explain Other possibility is trauma or fall as patient has a bruise on his left forehead but patient denies any history consistent consistent with fight or trauma His CK level is improving and IV fluids with bicarb will be continued for now.Cautious with IV fluids as patient has elevated BNP and congestion on his chest x-ray although patient is on room air and has no respiratory distress. Patient is improving symptomatically. (3) Elevated troponin: Code(s): R77.8 - Other specified abnormalities of plasma proteins Status: Acute Assessment and Plan: Patient does not report any chest pain although history is unreliable Check echo which is pending serial troponin showed down trending Continue aspirin and metoprolol Patient evaluated by Cardiology EKG reviewed (4) Seizure disorder: Code(s): G40.909 - Epilepsy, unspecified, not intractable, without status epilepticus Status: Acute Assessment and Plan: Valproic level was sub therapeutic on presentation carbamazepine level is pending Continue home medications of carbamazepine, Keppra and valproic acid Seizure precaution P.r.n. Ativan (5) Encephalopathy: Code(s): G93.40 - Encephalopathy, unspecified Status: Acute Assessment and Plan: Etiology is not clear and limited history has made it difficult. I suspect patient does have some baseline psychiatric disorder or this could be from meningitis encephalitis or postictal after seizure. But patient does not have classical presentation as he is alert awake following commands but does not provide any meaningful history. Ammonia and TSH was normal Head CT was normal Continue to avoid Avoid sedatives LP showed normal opening pressure with marginally elevated CSF protein and glucose. WBC was 11 and CSF was clear Will consult Infectious Disease for guidance. Neurology has already been consulted. Stop acyclovir based on preliminary CSF studies. (6) Elevated liver enzymes: Code(s): R74.8 - Abnormal levels of other serum enzymes Status: Acute Assessment and Plan: Elevated liver enzymes likely secondary to rhabdomyolysis Levels are improving and will Monitor for now (7) Electrolyte abnormality: Code(s): E87.8 - Other disorders of electrolyte and fluid balance, not elsewhere classified Status: Acute Assessment and Plan: Potassium level is normal after replacement. Additional Plan DVT prophylaxis -Lovenox subQ Code Status - Full Code Subjective Date/time seen: 12
[2021-05-27 14:07] LABS: Herpes Simplex Type 1 DNA PCR Not Detected (Not Detected); Herpes Simplex Type 2 DNA PCR Not Detected (Not Detected)
[2021-05-27 15:25] LABS: Creatine Kinase 4371 U/L (55-170)
--- NOTE | 2021-05-27 16:09 | PM.PNCARD ---
Progress Note: A&P Assessment and Plan (1) Elevated troponin: Code(s): R77.8 - Other specified abnormalities of plasma proteins Status: Acute Assessment and Plan: Patient arrives with a significantly elevated troponin. No known heart disease. EKG does not show any acute ischemic changes. I suspect the elevated troponin is due to nonischemic cardiac injury from what ever event occurred (seizures? Sepsis? Drugs?). Doubt ACS. Though chest x-ray suggests some pulmonary vascular congestion he does not appear to be in failure. Repeat EKG in the morning Echo Chest x-ray in a.m. Further recommendations to follow (2) Sepsis: Code(s): A41.9 - Sepsis, unspecified organism Status: Acute Assessment and Plan: Elevated white count and lactic acid level, possible sepsis. Management per route service representative and hospitalist. (3) Rhabdomyolysis: Code(s): M62.82 - Rhabdomyolysis Status: Acute Assessment and Plan: Management per route service representative (4) Encephalopathy: Code(s): G93.40 - Encephalopathy, unspecified Status: Acute Assessment and Plan: Management per route service representative (5) Seizure disorder: Code(s): G40.909 - Epilepsy, unspecified, not intractable, without status epilepticus Status: Acute Assessment and Plan: Management per hospitalists. Subjective Date/time seen: 05/27/21 16:09 Review of Systems Review of Systems: ROS unobtainable: Yes unobtainable due to medical condition and unobtainable due to mental status Cardiovascular: Cardiovascular: Denies chest pain and Denies dyspnea Respiratory: Respiratory: Denies dyspnea Gastrointestinal: Gastrointestinal: Denies abdominal pain Exam Narrative: Middle-aged male lying in bed in the ICU, easily arouse, calm but very confused. Abrasions and Ecchymosis on his forehead and left eye.. Const: General: comfortable and no acute distress HENMT: General nose exam: no epistaxis Mouth: Yes moist mucous membranes Eyes: EOM: EOMs intact bilaterally Neck: Neck: supple Thyroid: thyroid normal Carotids: no bruits Resp: Effort & Inspection: normal respiratory effort Auscultation: clear to auscultation bilaterally Cardio: Rate: regular rate Rhythm: regular rhythm Heart sounds: no murmurs and no rubs GI: Inspection: non-distended Skin: General skin exam: normal color Wounds: wounds noted Other: As above Neuro: Cognition (Neuro): abnormal cognition Speech: No normal speech Other: Slurred speech, confused, knows he is in [place] at a [facility], disoriented to date, day, situation Extrem: General: no edema and no pedal edema Other: Strong right posterior tibial but absent dorsalis pedis, good pulses in the left foot Psych: Mental Status: mental status grossly abnormal Objective Data Vital Signs Vital Signs: Vital Signs - 24 hr 05/26/21 20:00 05/26/21 21:43 05/26/21 22:00 Temperature 36.3 C L Pulse Rate 79 77 80 Respiratory Rate 18 Blood Pressure 125/80 Pulse Oximetry 98 05/27/21 00:00 05/27/21 04:00 05/27/21 06:00 Temperature 36.1 C L Pulse Rate 74 75 68 Respiratory Rate 18 Blood Pressure 110/77 Pulse Oximetry 97 05/27/21 08:00 05/27/21 08:11 05/27/21 12:00 Temperature Pulse Rate 70 72 65 Respiratory Rate Blood Pressure Pulse Oximetry 05/27/21 14:45 Temperature 36.9 C Pulse Rate 71 Respiratory Rate 17 Blood Pressure 100/66 Pulse Oximetry 93 Intake/Output Intake/Output: Intake & Output 05/24/21 05/25/21 05/26/21 05/27/21 23:59 23:59 23:59 23:59 Intake Total 2491 1243 2751 Output Total 700 3753 Balance 2982 8929 8411 Meds/Results Medications: Active Medications Generic Name Dose Route Start Last Admin Trade Name Freq PRN Reason Stop Dose Admin Aspirin 325 mg 05/25/21 17:
--- NOTE | 2021-05-27 16:46 | PM.DS ---
DS: Admitting Diagnosis Discharge Date 05/27/2021 Admitting Diagnosis (1) Sepsis (2) Encephalopathy: (3) Rhabdomyolysis: (4) Elevated troponin: (5) Elevated liver enzymes: (6) Electrolyte abnormality: (7) Seizure disorder: DS: Discharge Diagnosis Discharge Diagnosis (1) Sepsis: Code(s): A41.9 - Sepsis, unspecified organism Status: Acute Assessment and Plan: Patient presented with elevated WBC, lactic acid afebrile making his diagnosis consistent with sepsis Although these findings can be explained by seizures or status epilepticus, there is no obvious history of either happening this morning or last night Other possible etiologies are either meningitis or encephalitis Patient had LP done by IR under guidance He has been started on dexamethasone, empiric antibiotics in the form of cefepime, vancomycin and acyclovir which will be continued Patient received IV fluids which will be continued Lactic acid level has normal Blood cultures, urine culture have been sent and are pending (2) Rhabdomyolysis: Code(s): M62.82 - Rhabdomyolysis Status: Acute Assessment and Plan: Etiology unknown although seizures or status epilepticus can explain Other possibility is trauma or fall as patient has a bruise on his left forehead but patient denies any history consistent consistent with fight or trauma His CK level is improving and IV fluids with bicarb will be continued for now.Cautious with IV fluids as patient has elevated BNP and congestion on his chest x-ray although patient is on room air and has no respiratory distress (3) Elevated troponin: Code(s): R77.8 - Other specified abnormalities of plasma proteins Status: Acute Assessment and Plan: Patient does not report any chest pain although history is unreliable Check echo which is pending serial troponin showed down trending Continue aspirin and metoprolol Hold statin who elevated LFTs Hold anticoagulation as patient is getting lumbar puncture done today Patient evaluated by Cardiology EKG reviewed (4) Seizure disorder: Code(s): G40.909 - Epilepsy, unspecified, not intractable, without status epilepticus Status: Acute Assessment and Plan: Valproic level was sub therapeutic on presentation carbamazepine level is pending Continue home medications of carbamazepine, Keppra and valproic acid Seizure precaution P.r.n. Ativan (5) Encephalopathy: Code(s): G93.40 - Encephalopathy, unspecified Status: Acute Assessment and Plan: Etiology is not clear and limited history has made it difficult. I suspect patient does have some baseline psychiatric disorder or this could be from meningitis encephalitis or postictal after seizure. But patient does not have classical presentation as he is alert awake following commands but does not provide any meaningful history. Ammonia and TSH was normal Head CT was normal Continue to avoid Avoid sedatives LP showed normal opening pressure with marginally elevated CSF protein and glucose. WBC was 11 and CSF was clear Will consult Infectious Disease for guidance. Neurology has already been consulted (6) Elevated liver enzymes: Code(s): R74.8 - Abnormal levels of other serum enzymes Status: Acute Assessment and Plan: Elevated liver enzymes likely secondary to rhabdomyolysis Levels are improving and will Monitor for now (7) Electrolyte abnormality: Code(s): E87.8 - Other disorders of electrolyte and fluid balance, not elsewhere classified Status: Acute Assessment and Plan: Replace Potassium DS: Summary Hospital Course Reason for hospitalization: Altered mental status. Hospital Course: Please refer to admission H& P. 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
[2021-05-27 23:57] LABS: Carbamazepine Tegretol 2.5 mcg/mL (4.0-12.0)
[2021-05-28 11:48] LABS: Levetiracetam Keppra <1.0 mcg/mL (12.0-46.0)
[2021-05-29 13:56] LABS: VDRL Quantitative CSF Nonreactive (Nonreactive)
[2021-05-29 14:09] LABS: Epstein Barr Virus DNA PCR Not Detected (Not Detected); Source Epstein Barr Virus CSF
== END 2021-05-27 17:00 | disposition left against medical advice (07) | DRG 71 ==
LOC: ANHED 14:27 → ANHICU 16:10 → ANH3MEDSUR 05-26 11:22 → ANHICU 05-30 17:59
PROVIDERS: Internal Medicine; Physician Assistant; Admitting Provider Internal Medicine; Emergency Provider Emergency Medicine; Visit Provider Internal Medicine
DX: G93.40 Encephalopathy, unspecified (principal); M62.82 Rhabdomyolysis; E87.8 Other disorders of electrolyte and fluid balance, not elsewhere classified; R77.8 Other specified abnormalities of plasma proteins; R74.8 Abnormal levels of other serum enzymes; G40.909 Epilepsy, unspecified, not intractable, without status epilepticus; Z79.899 Other long term (current) drug therapy; Z86.61 Personal history of infections of the central nervous system; Z87.891 Personal history of nicotine dependence; Z88.0 Allergy status to penicillin
CPT/HCPCS: 36415; 62270; 62328; 70450; 70486; 71045; 72125; 76705; 80048; 80053; 80074; 80156; 80164; 80177; 80202; 80307; 81001; 82140; 82550; 82607; 82746; 82945; 83605; 83735; 83880; 84100; 84157; 84443; 84484; 85025; 85610; 85730; 86140; 86592; 87015; 87040; 87070; 87086; 87102; 87116; 87206; 87255; 87529; 87798; 89051; 93005; 93306; 96361; 96365; 96367; 96375; 96376; 99285; A9270; J0131; J0133; J0692; J0696; J1100; J1650; J2060; J3010; J3370; J3480; J7030; J7060

== ENCOUNTER 2021-12-09 07:05 | Outpatient (CLI) | payer MEDICARE, MEDICAID, SELFPAY ==
--- NOTE | 2021-12-09 12:36 | P.NEURO_ITS ---
Neurology EEG Report General Information Date of Study: 12/09/21 TEST EEG DIAGNOSIS epilepsy CONDITION OF RECORDING awake drowsy and sleep EEG NUMBER [id number] CLINICAL HISTORY patient reported he started having seizures about 20 years ago following a viral infection. 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 During drowsiness low-voltage beta activity seen diffusely admixed with waxing and waning posterior alpha rhythm. Bilateral symmetrical sleep activity is seen during sleep. Hyperventilation not done. Photic stimulation produced normal drive. Non paroxysmal. Nonfocal. Nonlateralizing. IMPRESSION Normal record
== END 2021-12-09 07:06 | disposition home or self-care (01) ==
PROVIDERS: PCP Internal Medicine; Visit Provider Psychiatry & Neurology Neurology
DX: G40.909 Epilepsy, unspecified, not intractable, without status epilepticus (principal)
CPT/HCPCS: 95816

== ENCOUNTER 2022-04-12 15:59 | Outpatient (CLI) | payer MEDICARE, MEDICAID, SELFPAY ==
[2022-04-12 16:30] LABS: Basophils Percent Auto 0.4 % (0.2-1.2); Eosinophils Absolute Auto 0.1 K/mm3 (0-0.3); Eosinophils Percent Auto 1.5 % (0-4.4); Hematocrit 44.5 % (42.0-52.0); Hemoglobin 16.1 g/dL (14.0-18.0); Immature Granulocyte Absolute 0.02 K/mm3 (0.00-0.031); Immature Granulocyte Percent A 0.3 % (0-0.5); Lymphocytes Absolute Auto 1.69 K/mm3 (0.9-3.2); Lymphocytes Percent Auto 21.4 % (18.3-44.2); Mean Corpuscular HGB Conc 36.2 g/dl (32-36); Mean Corpuscular Hemoglobin 34.8 pg (26-34); Mean Corpuscular Volume 96.1 fl (80-100); Mean Platelet Volume 9.6 fl (7.4-10.4); Monocytes Absolute Auto 0.7 K/mm3 (0.1-0.6); Monocytes Percent Auto 9.1 % (2.6-8.5); Neutrophils Absolute Auto 5.3 K/mm3 (1.3-6.7); Neutrophils Percent Auto 67.3 % (45.5-73.1); Platelet Count Result 248 k/mm3 (150-375); Red Blood Count 4.63 M/mm3 (4.6-6.20); Red Cell Distribution Width 12.7 % (11.5-14.5); White Blood Count 7.9 K/mm3 (4.5-10.0)
[2022-04-12 16:48] LABS: Alanine Aminotransferase 38 U/L (6-50); Alkaline Phosphatase 43 U/L (38-126); Anion Gap 12 mmol/L (8-16); Aspartate Amino Transferase 28 U/L (17-59); Bilirubin,Total 0.5 mg/dL (0.2-1.3); Blood Urea Nitrogen 11 mg/dL (9-20); Calcium 9.5 mg/dL (8.4-10.2); Carbon Dioxide 28 mmol/L (22-30); Chloride 96 mmol/L (98-107); Estimated Glomerular Filt Rate > 60; Glucose 88 mg/dL (65-110); Potassium 4.4 mmol/L (3.4-5.0); Sodium 136 mmol/L (137-145)
[2022-04-12 16:53] LABS: Valproic Acid 39.4 ug/mL (50-120)
[2022-04-15 07:55] LABS: Carbamazepine Tegretol 6.5 mcg/mL (4.0-12.0)
== END 2022-04-12 16:00 | disposition home or self-care (01) ==
PROVIDERS: PCP Internal Medicine; Visit Provider Student in an Organized Health Care Education/Training Program
DX: G40.919 Epilepsy, unspecified, intractable, without status epilepticus (principal)
CPT/HCPCS: 36415; 80053; 80156; 80164; 80177; 85025

== ENCOUNTER → 2022-10-19 09:47 | Outpatient (CLI) | payer MEDICARE, MEDICAID, SELFPAY ==
--- NOTE | ~2022-10-19 | XR_ITS ---
Right foot Technique: AP, oblique, and lateral views were obtained. Clinical History: Fifth toe injury Findings: No acute fracture or dislocation is seen. Osseous alignment is anatomic. Joint spaces are p reserved without erosive or degenerative change. Soft tissues are unremarkable. Impression: Unremarkable right foot radiographs. Reviewed, dictated and finalized at [facility]. Impression: Unremarkable right foot radiographs.
== END ==
PROVIDERS: PCP Internal Medicine; Visit Provider Nurse Practitioner
DX: S99.921A Unspecified injury of right foot, initial encounter (principal); X58.XXXA Exposure to other specified factors, initial encounter
CPT/HCPCS: 73630

== ENCOUNTER 2022-12-04 00:22 | Day surgery (SDC) | payer MEDICARE, MEDICAID, SELFPAY ==
[2022-11-24 14:14] VITALS: BMI 28.1
--- NOTE | 2022-12-04 08:18 | WPDANESEPPF ---
Anes - Initial Pre Proc Eval Procedure: Operation Date: 12/04/22 11:30 Proposed Procedures p Colonoscopy - Isaías Cohen MD Date/Time: 12/04/22 08:18 Surgeon: Isaías Cohen MD Pre Op Diagnosis: hx colon polyps Patient Data Age: 47 Gender: M Height: 1.73 m Weight: 84 kg Allergies Allergy/AdvReac Type Severity Reaction Status Date / Time Penicillins Allergy Unknown Rash Verified 12/04/22 10:07 Home Medications Medication Instructions Recorded Confirmed Type lorazepam 0.5 mg tablet (Ativan) 0.5 mg PO DAILY PRN Seizures 01/14/21 12/04/22 History multivitamin 1 tablet PO DAILY 01/14/21 12/04/22 History sildenafil (pulm.hypertension) 20 60 mg PO DAILY PRN sexual activity 02/15/21 12/04/22 Rx mg tablet #30 tabs divalproex 500 mg tablet,delayed 1,000 mg PO Q12H #120 tabs 10/12/22 12/04/22 Rx release (Depakote) levetiracetam 750 mg tablet 750 mg PO .COMPLEX #300 tabs 10/12/22 12/04/22 Rx (Keppra) carbamazepine 200 mg tablet 200 mg PO TID 10/19/22 12/04/22 History clonazepam 1 mg tablet 1.5 mg PO DAILY 10/19/22 12/04/22 History Patient hx anesthesia problems: none Family hx anesthesia problems: none Results Review: All pre-operative results and documents have been reviewed as part of the pre-operative evaluation. FOR[facility]LY [facility], [facility] Past Medical History Medical History (Updated 12/01/22 @ 15:07 by Ramsey Camarena DO) Encephalitis History of varicella as a child Hypertension Seizure disorder Surgical History Surgical History History of placement of ear tubes (1983) Family History Family History Mother Patient's mother is in good health Father Patient's father is in good health Social History Social History (Updated 10/19/22 @ 09:31 by Caitlin Lin CMA) Social History: Smoking history in distant past, denies alcohol use, admits to marijuana, states he has used drugs in the distant past but unable to tell me the name of the drug when he used it and where but he kept on pointing towards his nose. 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 Years smoked: 20 Smoking status: Current every day smoker Tobacco type: cigarettes Alcohol intake: never Substance use: current Substance use type: marijuana Last use: medical; daily Lack of Transportation: YES Lack of Food: Never True Current Housing: I Have Housing Concerned About Future Housing: No Difficulty Paying Gas/Electric Bills: No Difficulty Paying for Meds: No Currently Unemployed: No Education: Associate Degree Difficulty w/ Childcare or Family Care: No Living arrangements: with family Spiritual care concerns: No Anes - Eval Final PreProcedure Day of Procedure 12/04/22 08:18 Patient weight: overweight Heart: regular rate and rhythm Lungs: clear to auscultation Airway: Mallampati scale class II Neurological: alert and oriented Last oral intake: >/= 8 hours ASA classification: III Emergent: no Anesthetic plan: proceed Anesthesia type and monitoring: general GIVS and standard monitoring Results Review: All pre-operative results and documents have been reviewed as part of the pre-operative evaluation. Informed Consent: The patient's anesthetic plan and its attendant risks and benefits were discussed with the patient/family/POA. Questions were solicited and answers provided to the satisfaction of the patient/family/POA.
[2022-12-04 10:08] VITALS: BP 105/78; PULSE 54; RESP 18; TEMP 36.2; O2SAT 100; BMI 28.6
[2022-12-04] MEDS: LACTATED RINGERS 1,000 ML 150 ML IV CONT (10:21)
--- NOTE | 2022-12-04 10:54 | PM.HPGS ---
History of Present Illness History of Present Illness Consent: Risks, benefits, and alternatives have been discussed and questions answered. Patient agrees to proceed with procedure. Chief complaint: hx colon polyps Narrative: Ge Condon is a 47 year old male with large polyp removed in 2020 Review of Systems Constitutional: Constitutional: Denies headache(s) and Denies weakness Eyes: Eyes: Denies blurry vision ENT: Reports Normal hearing present, Denies headache(s) and Denies neck pain Cardiovascular: Cardiovascular: Denies chest pain and Denies dyspnea Respiratory: Respiratory: Denies dyspnea Gastrointestinal: Gastrointestinal: Reports no additional gastrointestinal complaints Genitourinary: Genitourinary: Denies dysuria Musculoskeletal: Musculoskeletal: Denies neck pain Integumentary/Breasts: Skin/Breast: Denies dry skin Neurologic: Reports Normal hearing present, Denies headache(s) and Denies weakness Psychiatric: Psychiatric: Denies anxiety Endocrine: Endocrine: Denies change in body appearance Hematologic/Lymphatic: Hematologic/Lymphatic: Denies easy bleeding Allergic/Immunologic: Allergic/Immunologic: Denies urticaria PMFSH Past Medical History Medical History (Updated 12/04/22 @ 10:55 by Isaías Cohen MD) Adenomatous colon polyp Encephalitis History of varicella as a child Hypertension Seizure disorder Surgical History Surgical History History of placement of ear tubes (1983) Family History Family History Mother Patient's mother is in good health Father Patient's father is in good health Social History Social History (Updated 10/19/22 @ 09:31 by Caitlin Lin [facility]) Social History: Smoking history in distant past, denies alcohol use, admits to marijuana, states he has used drugs in the distant past but unable to tell me the name of the drug when he used it and where but he kept on pointing towards his nose. On disability. 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 Years smoked: 20 Smoking status: Current every day smoker Tobacco type: cigarettes Alcohol intake: never Substance use: current Substance use type: marijuana Last use: medical; daily Lack of Transportation: YES Lack of Food: Never True Current Housing: I Have Housing Concerned About Future Housing: No Difficulty Paying Gas/Electric Bills: No Difficulty Paying for Meds: No Currently Unemployed: No Education: Associate Degree Difficulty w/ Childcare or Family Care: No Living arrangements: with family Spiritual care concerns: No Meds Home Medications and Allergies Home Medications Medication Instructions Recorded Confirmed Type lorazepam 0.5 mg tablet (Ativan) 0.5 mg PO DAILY PRN Seizures 01/14/21 12/04/22 History multivitamin 1 tablet PO DAILY 01/14/21 12/04/22 History sildenafil (pulm.hypertension) 20 60 mg PO DAILY PRN sexual activity 02/15/21 12/04/22 Rx mg tablet #30 tabs divalproex 500 mg tablet,delayed 1,000 mg PO Q12H #120 tabs 10/12/22 12/04/22 Rx release (Depakote) levetiracetam 750 mg tablet 750 mg PO .COMPLEX #300 tabs 10/12/22 12/04/22 Rx (Keppra) carbamazepine 200 mg tablet 200 mg PO TID 10/19/22 12/04/22 History clonazepam 1 mg tablet 1.5 mg PO DAILY 10/19/22 12/04/22 History Allergies Allergy/AdvReac Type Severity Reaction Status Date / Time Penicillins Allergy Unknown Rash Verified 12/04/22 10:07 Vital Signs Vital Signs - 24 hr 12/04/22 10:08 Temperature 97.1 F L Pulse Rate 54 L Respiratory Rate 18 Blood Pressure 105/78 Pulse Oximetry 100 Oxygen Delivery Room Air Exam Const: General: comfortable and no acute distress HENMT: Face/Nose/Sinus: Normal nares present Eyes: General: appearance normal, both eyes and all related structures Neck: Neck: no JVD Resp: Auscultation: clear to auscultation bilater
[2022-12-04 11:26] VITALS: BP 88/56; PULSE 52; RESP 14; O2SAT 96
[2022-12-04 11:36] VITALS: BP 117/74; PULSE 57; RESP 22; O2SAT 100
[2022-12-04 11:46] VITALS: BP 107/76; PULSE 56; RESP 19; O2SAT 100
== END 2022-12-04 11:54 | disposition home or self-care (01) ==
PROVIDERS: PCP Internal Medicine; Visit Provider Internal Medicine Gastroenterology
PROC: 0DJD8ZZ Inspection of Lower Intestinal Tract, Via Natural or Artificial Opening Endoscopic (ICD-10-PCS; CPT 45378; principal; 2022-12-04 11:30)
DX: Z12.11 Encounter for screening for malignant neoplasm of colon (principal); D12.3 Benign neoplasm of transverse colon; K63.5 Polyp of colon; K64.8 Other hemorrhoids; Z86.010 Personal history of colon polyps; I10 Essential (primary) hypertension; G40.909 Epilepsy, unspecified, not intractable, without status epilepticus; F17.210 Nicotine dependence, cigarettes, uncomplicated; F12.90 Cannabis use, unspecified, uncomplicated
CPT/HCPCS: 45385; 88305; J2704; J7120

== ENCOUNTER 2023-06-24 20:53 | Inpatient (IN) | payer MEDICARE, MEDICAID, SELFPAY ==
[2023-06-24] VITALS (27 sets, daily range): BP systolic 111–136; BP diastolic 85–96; PULSE 83–103; RESP 13–24; TEMP 37.4; O2SAT 94–100
--- NOTE | ~2023-06-24 | CT_ITS ---
EXAMINATION: CT brain wo con DATE: 06/24/2023 21:51 INDICATION: seizure . TECHNIQUE: Computed tomography (CT) of the head was performed without intravenous contrast. The mA wa s adjusted according to patient size. Iterative reconstruction technique was employed. The dose-lengt h product was 681.00 mGy-cm. COMPARISON: 05/25/2021. FINDINGS: No acute intracranial hemorrhage or extra-axial fluid collection. No hydrocephalus, mass, or herniation. No acute ischemic infarct. Unremarkable dural venous sinus attenuation. No acute osseous abnormality. Small retention cysts or polyps in the bilateral maxillary maxillary and right sphenoid sinuses, nodu lar mucosal thickening in the ethmoid sinuses, bilateral mastoid fluid without erosion or middle ear fluid, the remaining aerated spaces are clear. Right temporoparietal encephalomalacia IMPRESSION: No acute intracranial process. Reviewed, dictated and finalized at location K. E ANALYST
--- NOTE | ~2023-06-24 | CT_ITS ---
EXAMINATION: CT brain wo con DATE: 06/25/2023 03:00 INDICATION: Head injury. TECHNIQUE: Computed tomography (CT) of the head was performed without intravenous contrast. The mA wa s adjusted according to patient size. Iterative reconstruction technique was employed. The dose-lengt h product was 681.00 mGy-cm. 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 There is no i ntracranial hemorrhage, acute infarction, or abnormal intracranial mass lesion. The ventricles are no rmal in size. There is mild mucosal thickening in the paranasal sinuses. There are bilateral mastoid effusions. The orbits are normal. IMPRESSION: 1. 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 Reviewed, dictated and finalized at location A. S REPRESENTATIVE [employer]
--- NOTE | 2023-06-24 20:59 | ECG_ITS ---
Measurements Intervals [place] Rate: 91 P: 50 [place]: 232 QRS: -38 QRSD: 106 T: 44 QT: 344 QTc: 425 Interpretive Statements SINUS RHYTHM WITH FIRST DEGREE AV BLOCK LEFT AXIS DEVIATION BASELINE ARTIFACT- I, II, AVR, AVL BORDERLINE ECG COMPARED TO ECG 05/26/2021 12:04:26 FIRST DEGREE AV BLOCK NOW PRESENT LEFT-AXIS DEVIATION NOW PRESENT Electronically Signed On 06-25-2023 8:19:52 COMPUTER HELP DESK [employer]IST by Brannon Martinez D.O.
--- NOTE | 2023-06-24 21:04 | ED.SEIZURE ---
HPI - Seizure General Chief Complaint: Seizure <ERIN Bach Last Filed: 06/29/23 09:27> Stated Complaint: seizure <ERIN Bach Last Filed: 06/29/23 09:27> Time Seen by Provider: 06/24/23 21:01 <ERIN Bach Last Filed: 06/29/23 09:27> Source: patient and EMS <ERIN Bach Last Filed: 06/29/23 09:27> Mode of arrival: EMS <ERIN Bach Last Filed: 06/29/23 09:27> Limitations: altered mental status <REIN Bach Last Filed: 06/29/23 09:27> History of Present Illness HPI Narrative: This is a 48 year old male that presents to the ER for seizure. Reportedly patient was on his break a little too long so a co-worker went to check on him. They found him in the parking lot seizing. EMS was called and he was brought in for further evaluation. Patient post-ictal upon arrival. <ERIN Bach Last Filed: 06/29/23 09:27> Seizure History: Yes <ERIN Bach Last Filed: 06/29/23 09:27> Related Data Home Medications: Home Medications Medication Instructions Recorded Confirmed lorazepam 0.5 mg tablet (Ativan) 0.5 mg PO DAILY PRN Seizures 01/14/21 12/04/22 multivitamin 1 tablet PO DAILY 01/14/21 12/04/22 clonazepam 1 mg tablet 1.5 mg PO DAILY 10/19/22 12/04/22 <ERIN Bach Last Filed: 06/29/23 09:27> Allergies/Adverse Reactions: Allergies Allergy/AdvReac Type Severity Reaction Status Date / Time Penicillins Allergy Unknown Rash Verified 12/04/22 10:07 <ERIN Bach Last Filed: 06/29/23 09:27> Review of Systems Review of Systems: ROS unobtainable: Yes unobtainable due to mental status <Antonia Chiu PA-C - Last Filed: 06/29/23 09:27> [facility] Past Medical History Medical History: Medical History Adenomatous colon polyp Encephalitis History of varicella as a child Hypertension Seizure disorder <ERIN Bach Last Filed: 06/29/23 09:27> Surgical History Surgical History: Surgical History History of placement of ear tubes (1983) <ERIN Bach Last Filed: 06/29/23 09:27> Family History Family History: Family History Mother Patient's mother is in good health Father Patient's father is in good health <Antonia Chiu PA-C - Last Filed: 06/29/23 09:27> Social History Social History: Social History Social History: Smoking history in distant past, denies alcohol use, admits to marijuana, states he has used drugs in the distant past but unable to tell me the name of the drug when he used it and where but he kept on pointing towards his nose. 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: 20 Smoking status: Current every day smoker Tobacco type: cigarettes Alcohol intake: never Substance use: current Substance use type: marijuana Last use: medical; daily Lack of Transportation: YES Lack of Food: Never True Current Housing: I Have Housing Concerned About Future Housing: No Difficulty Paying Gas/Electric Bills: No Difficulty Paying for Meds: No Currently Unemployed: No Education: Associate Degree Difficulty w/ Childcare or Family Care: No Living arrangements: with family Spiritual care concerns: No <ERIN Bach Last Filed: 06/29/23 09:27> Exam Narrative: GENERAL: Well-appearing, well-nourished, and in no acute distress. HEAD: Normocephalic, atraumatic. EYES: PERRLA and EOMI. ENT: Nares clear, no rhinorrhea or epistaxis. Mucous membranes moist. Oropharynx without tonsillar hypertrophy exudate or other lesions. NECK: Supple. No adenopathy or masses. CHEST: Clear to auscultation. No respiratory distress. No wheezes rales or rhonchi HEART: Regular r
[2023-06-24] MEDS: LORazepam INJ (*CRX) 2 MG/ML VIAL (21:25)
[2023-06-24 21:26] LABS: Basophils Percent Auto 0.4 % (0.2-1.2); Eosinophils Absolute Auto 0.1 K/mm3 (0-0.3); Eosinophils Percent Auto 1.2 % (0-4.4); Hematocrit 47.7 % (42.0-52.0); Hemoglobin 15.9 g/dL (14.0-18.0); Immature Granulocyte Absolute 0.06 K/mm3 (0.00-0.031); Immature Granulocyte Percent A 0.7 % (0-0.5); Lymphocytes Absolute Auto 1.64 K/mm3 (0.9-3.2); Lymphocytes Percent Auto 17.8 % (18.3-44.2); Mean Corpuscular HGB Conc 33.3 g/dl (32-36); Mean Corpuscular Hemoglobin 33.7 pg (26-34); Mean Corpuscular Volume 101.1 fl (80-100); Mean Platelet Volume 10.5 fl (7.4-10.4); Monocytes Absolute Auto 0.6 K/mm3 (0.1-0.6); Neutrophils Absolute Auto 6.7 K/mm3 (1.3-6.7); Neutrophils Percent Auto 72.9 % (45.5-73.1); Platelet Count Result 253 k/mm3 (150-375); Red Blood Count 4.72 M/mm3 (4.6-6.20); Red Cell Distribution Width 12.8 % (11.5-14.5); White Blood Count 9.2 K/mm3 (4.5-10.0)
[2023-06-24 21:31] LABS: Appearance Urine Clear (Clear); Bacteria Urine None Seen /hpf; Bilirubin Urine Negative (Negative); Blood Urine 1+ (Negative); Color Urine Yellow (Yellow); Glucose Urine UA Negative (Negative); Ketones Urine 1+ mg/dL (Negative); Leukocyte Esterase Ur Negative LEU/UL (Negative); Nitrate Urine Negative (Negative); Non Pathogenic Casts 0-2; Protein Urine 2+ mg/dL (Negative); RBC Urine 0-2 /hpf (0-2); Specific Grav Ur 1.019 (1.001-1.035); Squamous Epithelial Cell Urine None seen /hpf (Few); Urobilinogen Urine 0.2 mg/dL (<2.0); WBC Urine 0-5 /hpf
[2023-06-24 21:32] LABS: Add Urine Microscopic? YES
[2023-06-24 21:36] LABS: Ethanol < 10 mg/dL (<10)
[2023-06-24 21:44] LABS: Amphetamine Screen Urine Negative (Negative); Barbiturate Screen Urine Negative (Negative); Benzodiazepines Screen Urine Negative (Negative); Cannabinoid Screen Urine Positive (Negative); Cocaine Screen Urine Negative (Negative); Methadone Screen Urine Negative (Negative); Opiate Screen Urine Negative (Negative); Phencyclidine Screen Urine Negative (Negative)
--- NOTE | 2023-06-24 21:53 | PC.NURSE ---
EDp Dr. Jaramillo verbal order 2mg of ativan IV push for pt due seizure. This RN used closed loop communication to confirm dose/ patient/ route/ and medication. EDP Dr. Jaramillo verbalized confirmation.
[2023-06-24] MEDS: SODIUM CHLORIDE 0.9% IV 500 ML 999 ML IV CONT ×2 (21:59→23:12)
[2023-06-24 22:50] LABS: Magnesium 1.8 mg/dL (1.6-2.3)
[2023-06-24 22:52] LABS: Alanine Aminotransferase 24 U/L (6-50); Albumin Level 4.2 g/dL (3.5-5.1); Alkaline Phosphatase 45 U/L (38-126); Anion Gap 10 mmol/L (8-16); Aspartate Amino Transferase 21 U/L (17-59); Bilirubin,Total 0.4 mg/dL (0.2-1.3); Blood Urea Nitrogen 12 mg/dL (9-20); Calcium 8.7 mg/dL (8.4-10.2); Carbon Dioxide 22 mmol/L (22-30); Chloride 98 mmol/L (98-107); Estimated Glomerular Filt Rate > 60; Glucose 83 mg/dL (65-110); Sodium 130 mmol/L (137-145)
[2023-06-24 22:58] LABS: Influenza A QL RT-PCR Negative (Negative); Influenza B QL RT-PCR Negative (Negative); RSV RNA, RT-PCR Negative (Negative); SARS-CoV-2 RNA PCR Negative (Negative)
[2023-06-24] MEDS: carBAMazepine 200 MG TABLET PO (23:57)
[2023-06-24] MEDS: VALPROIC ACID 250 MG CAPSULE 1000 MG PO (23:57)
[2023-06-25] VITALS (26 sets, daily range): BP systolic 114–137; BP diastolic 63–94; PULSE 70–91; RESP 12–29; O2SAT 97–100
[2023-06-25 01:52] LABS: Valproic Acid 120.7 ug/mL (50-120)
--- NOTE | 2023-06-25 02:47 | PC.NURSE ---
PT NOTED TO BE WANDERING THE HALLWAY NAKED AND BLEEDING FROM LEFT EYEBROW. THIS RN ALONG WITH LEAD ESTHETICIAN, LEONORA ASSISTED PT BACK TO ROOM/ BED. PT WAS AMBULATING WITH A STEADY GAIT. PT STATED I JUST WANTED TO GO SMOKE A CIGARETTE'. THIS RN ASKED PT IF HE KNEW WHERE HE WAS AND WHY HE WAS THERE. PT WAS ABLE TO RESPOND APPROPRIATELY. PT WAS AO X 4 UPON ASSESSMENT. EDP ERIN CHI ASSESSED PT INJURY TO THE LEFT EYE. PT VERBALIZED HE HIT HIS HEAD OFF THE RAIL. KILO GARCIA CLEANED LEFT EYE INJURY AND WAS ABLE TO GLUE INJURY SHUT. PT WAS PLACED ON A BED ALARM WITH SEIZURE PRECAUTIONS STILL IN PLACE.
[2023-06-25] MEDS: TETANUS,DIPHTHERIA,AC PERTUSSIS ADULT (0.5 ML) BOOSTRIX IM (03:09)
--- NOTE | 2023-06-25 06:29 | PM.IMHP ---
H&P: HPI History of Present Illness Date/Time: 06/25/23 06:29 Chief Complaint: Patient transferred to the ER for evaluation via EMS from his work place with a witnessed seizure Narrative: He is a pleasant gentleman with seizure disorder who was at his workplace. He took a break and did not come back. His work mates got concerned, went looking for him and found him having active seizure in the parking lot around his car with unknown down time. EMS was called and patient brought to the ER for evaluation. He was given 5 mg IV diazepam EN route. Patient was postictal, alert to painful stimuli on arrival to the ER but incontinent of urine. Patient was treated aggressively in ED with antiseizure meds. Neurology is consulted who want to admit him in the hospital for close monitoring, management and work up. Review of Systems Review of Systems: 14 systems were reviewed with pertinent positives and negatives per HPI. Except as documented in the HPI/progress notes, all other systems were reviewed and are negative. All systems reviewed & are unremarkable except as noted in HPI and below PMFSH Past Medical History Medical History Adenomatous colon polyp Encephalitis History of varicella as a child Hypertension Seizure disorder Surgical History Surgical History History of placement of ear tubes (1983) Family History Family History Mother Patient's mother is in good health Father Patient's father is in good health Social History Social History Social History: Smoking history in distant past, denies alcohol use, admits to marijuana, states he has used drugs in the distant past but unable to tell me the name of the drug when he used it and where but he kept on pointing towards his nose. 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 Smoking status: Current every day smoker Tobacco type: cigarettes Alcohol intake: never Substance use: current Substance use type: marijuana Last use: medical; daily Lack of Transportation: YES Lack of Food: Never True Current Housing: I Have Housing Concerned About Future Housing: No Difficulty Paying Gas/Electric Bills: No Difficulty Paying for Meds: No Currently Unemployed: No Education: Associate Degree Difficulty w/ Childcare or Family Care: No Living arrangements: with family Spiritual care concerns: No Meds Home Medications and Allergies Home Medications Medication Instructions Recorded Confirmed Type lorazepam 0.5 mg tablet (Ativan) 0.5 mg PO DAILY PRN Seizures 01/14/21 12/04/22 History multivitamin 1 tablet PO DAILY 01/14/21 12/04/22 History sildenafil (pulm.hypertension) 20 60 mg PO DAILY PRN sexual activity 02/15/21 12/04/22 Rx mg tablet #30 tabs divalproex 500 mg tablet,delayed 1,000 mg PO Q12H #120 tabs 10/12/22 12/04/22 Rx release (Depakote) levetiracetam 750 mg tablet 750 mg PO .COMPLEX #300 tabs 10/12/22 12/04/22 Rx (Keppra) clonazepam 1 mg tablet 1.5 mg PO DAILY 10/19/22 12/04/22 History carbamazepine 200 mg tablet See Rx Instructions .Route 05/02/23 Rx .COMPLEX #90 tabs Allergies Allergy/AdvReac Type Severity Reaction Status Date / Time Penicillins Allergy Unknown Rash Verified 12/04/22 10:07 Vital Signs Vital Signs - 24 hr 06/24/23 20:52 06/24/23 21:00 06/24/23 21:07 Temperature 37.4 C Pulse Rate 103 H Respiratory Rate 17 Blood Pressure 111/96 H Pulse Oximetry 97 100 Oxygen Delivery Room Air Room Air Non-Rebreather Mask Oxygen Flow Rate 15 06/24/23 22:00 06/24/23 22:09 06/24/23 22:10 Temperature Pulse Rate 83 Respiratory Rate 17 Blood Pressure 136/91 H Pulse Oximetry 100 100 100 Oxygen Delivery Room Air Room Air Oxygen Flow Rate 06/24/23 21:13
[2023-06-25 07:27] LABS: Creatine Kinase 276 U/L (55-170)
--- NOTE | 2023-06-25 09:21 | PC.NURSE ---
Patient notified of risks of leaving AMA. Dr. Salgado notified. Follow up instructions given to patient. Patient signed AMA form.
--- NOTE | 2023-06-25 09:30 | PC.NURSE ---
Pt left AMA. AMA protocol and procedure was explained to the pt and he verbalized understanding. Pt had friend come pick him up from hospital. Pt was taken down to vehicle by RN and PCT to monitor for any seizure like activity. Pt IV's were removed tip intact. Pt denies any need and only concerned expressed while here was discharging home. Pt was monitored for seizure like activity and any changes in status.
--- NOTE | 2023-06-25 11:01 | WPDNEURCNPN ---
Assessment and Plan Assessment and plan Plan Ge Condon is a 48 year old male with a history of focal onset epilepsy presenting due to breakthrough seizure. Could be provoked by cannabinoid use? His VPA level is 120, which not a true trough level. Sodium is on the lower end 130, so would not increase Tegretol further. He is essentially maximized on the Keppra as well. Consult date: 06/25/23 Reason for consult: Breakthrough seizure HPI: Ge Condon is a 48 year old male with a history of focal onset epilepsy presenting due to breakthrough seizure. [place] [facility] [place]. He has a history of R tempo/parietal/occipital region with resultant epilepsy. He takes TEgretol 200mg TID, VPA 1000mg BID, and Keppra [id number]. He had been fairly well controlled with his seizures until yesterday. While at work he was noted by coworkers to be seizing. Unclear how long the seizure lasted but he arrived to [place] ED post-ictal. While in the ED he had another seizure which was treated with Ativan. His lab work was significant for VPA level of 120. Keppra and Tegretol levels are pending. His sodium was 130. UDS was positive for cannabinoids. [facility] Past Medical History Medical History Adenomatous colon polyp Encephalitis History of varicella as a child Hypertension Seizure disorder Surgical History Surgical History History of placement of ear tubes (1983) Family History Family History Mother Patient's mother is in good health Father Patient's father is in good health Social History Social History Social History: Smoking history in distant past, denies alcohol use, admits to marijuana, states he has used drugs in the distant past but unable to tell me the name of the drug when he used it and where but he kept on pointing towards his nose. 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: 20 Smoking status: Current every day smoker Tobacco type: cigarettes Alcohol intake: never Substance use: current Substance use type: marijuana Last use: medical; daily Lack of Transportation: YES Lack of Food: Never True Current Housing: I Have Housing Concerned About Future Housing: No Difficulty Paying Gas/Electric Bills: No Difficulty Paying for Meds: No Currently Unemployed: No Education: Associate Degree Difficulty w/ Childcare or Family Care: No Living arrangements: with family Spiritual care concerns: No Meds Home Medications and Allergies Home Medications Medication Instructions Recorded Confirmed Type lorazepam 0.5 mg tablet (Ativan) 0.5 mg PO DAILY PRN Seizures 01/14/21 12/04/22 History multivitamin 1 tablet PO DAILY 01/14/21 12/04/22 History sildenafil (pulm.hypertension) 20 60 mg PO DAILY PRN sexual activity 02/15/21 12/04/22 Rx mg tablet #30 tabs divalproex 500 mg tablet,delayed 1,000 mg PO Q12H #120 tabs 10/12/22 12/04/22 Rx release (Depakote) levetiracetam 750 mg tablet 750 mg PO .COMPLEX #300 tabs 10/12/22 12/04/22 Rx (Keppra) clonazepam 1 mg tablet 1.5 mg PO DAILY 10/19/22 12/04/22 History carbamazepine 200 mg tablet See Rx Instructions .Route 05/02/23 Rx .COMPLEX #90 tabs Allergies Allergy/AdvReac Type Severity Reaction Status Date / Time Penicillins Allergy Unknown Rash Verified 12/04/22 10:07 Vital Signs Vital Signs - 24 hr 06/24/23 20:52 06/24/23 21:00 06/24/23 21:07 Temperature 37.4 C Pulse Rate 103 H Respiratory Rate 17 Blood Pressure 111/96 H Pulse Oximetry 97 100 Oxygen Delivery Room Air Room Air Non-Rebreather Mask Oxygen Flow Rate 15 06/24/23 22:00 06/24/23 22:09 06/24/23 22:10 Temperature Pulse Rate 83 Respiratory Rate 17 Blood Pressure 136/91 H Pulse Oximetry 100 100 100 Oxyg
--- NOTE | 2023-06-25 16:15 | PC.NURSE ---
Assessment and assessment charting done by Amy VILLASEÑOR. Leonie Stewart LPN did all of the rest of the charting, educated pt on risks of leaving AMA, and explained AMA process to pt. I have reviewed all of her charting and agree with her findings.
[2023-06-27 15:00] LABS: Levetiracetam Keppra 41.7 mcg/mL (6.0-46.0)
[2023-06-27 20:10] LABS: Carbamazepine Tegretol 6.2 mcg/mL (4.0-12.0)
--- NOTE | 2023-07-21 17:22 | P.PNCROSS_ITS ---
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 * I went off my shift at 7:00 a.m when the patient was assigned to our morning hospitalist, Dr. Mahsa Salgado. * It seems like patient signed out against medical advice as per nursing note below at 4:15 pm that day, before being evaluated by Neurologist Again, please note patient left against medical advice and was NOT formally discharged from the hospital. Discharge diagnosis: * Seizure Disorder * Witnessed seizure-like activity * Left against medical advice * Chronic medical issues Ge Condon ??Male : 1975? Emr# [id number] 06/25/23 16:15 - Nurse Note by Amy Blevins RN Acct Num: [id number]? : 1975? Patient Age: 48 Assessment and assessment charting done by Amy VILLASEÑOR. Leonie Stewart LPN did all of the rest of the charting, educated pt on risks of leaving AMA, and explained AMA process to pt. I have reviewed all of her charting and agree with her findings. Initialized on 06/25/23 16:15 - END OF NOTE
--- NOTE | 2023-07-21 17:22 | PM.EVENT ---
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 I went off my shift at 7:00 a.m when the patient was assigned to our morning hospitalist, Dr. Mahsa Salgado. It seems like patient signed out against medical advice as per nursing note below at 4:15 pm that day, before being evaluated by Neurologist Again, please note patient left against medical advice and was NOT formally discharged from the hospital. Discharge diagnosis: Seizure Disorder Witnessed seizure-like activity Left against medical advice Chronic medical issues Ge Condon ??Male : 1975? Emr# [id number] 06/25/23 16:15 - Nurse Note by Amy Blevins RN Acct Num: [id number]? : 1975? Patient Age: 48 Assessment and assessment charting done by Amy VILLASEÑOR. Leonie Stewart LPN did all of the rest of the charting, educated pt on risks of leaving AMA, and explained AMA process to pt. I have reviewed all of her charting and agree with her findings. Initialized on 06/25/23 16:15 - END OF NOTE
== END 2023-06-25 09:21 | disposition left against medical advice (07) | DRG 101 ==
LOC: ANHED 06-25 04:23 → ANH3MEDSUR 06-25 06:50
PROVIDERS: Admitting Provider Family Medicine; Emergency Provider Physician Assistant; PCP Internal Medicine; Visit Provider Family Medicine
DX: G40.909 Epilepsy, unspecified, not intractable, without status epilepticus (principal); E87.1 Hypo-osmolality and hyponatremia; Z20.822 Contact with and (suspected) exposure to COVID-19; I10 Essential (primary) hypertension; F17.210 Nicotine dependence, cigarettes, uncomplicated
CPT/HCPCS: 36415; 70450; 80053; 80156; 80164; 80177; 80307; 81001; 82140; 82550; 82948; 83735; 84443; 84484; 85025; 85610; 85730; 87637; 90471; 90715; 93005; 96360; 96361; 96365; 99285; A9270; J1953; J2060; J7030; J7040

== ENCOUNTER 2023-06-25 10:02 | Emergency (ER) | payer MEDICARE, MEDICAID, SELFPAY ==
[2023-06-25] VITALS (12 sets, daily range): BP systolic 134–154; BP diastolic 87–130; PULSE 64–92; RESP 12–23; TEMP 36.7; O2SAT 94–100
--- NOTE | 2023-06-25 10:12 | ED.SEIZURE ---
HPI - Seizure General Chief Complaint: Seizure <Denzel Ramirez APRN - Last Filed: 06/25/23 14:02> Stated Complaint: seizure <Denzel Ramirez APRN - Last Filed: 06/25/23 14:02> Time Seen by Provider: 06/25/23 10:11 <Denzel Ramirez APRN - Last Filed: 06/25/23 14:02> Source: patient <Denzel Ramirez APRN - Last Filed: 06/25/23 14:02> Mode of arrival: ambulatory <Deznel Ramirez APRN - Last Filed: 06/25/23 14:02> Limitations: no limitations <Denzel Ramirez APRN - Last Filed: 06/25/23 14:02> History of Present Illness HPI Narrative: Ge is a 48-year-old male patient presenting to the ER for evaluation of altered mental status/tremors. Reports that he was admitted yesterday for seizures. Signed out AMA around 9:30 this morning and came back to the ER approximately 1 hour later. Was told by nurse that patient was picked up by the cousin and taken home and states his family member brought him back in. States he felt as though he needed to be evaluated by neurologist. <Denzel Ramirez APRN - Last Filed: 06/25/23 14:02> Seizure History: Yes <Denzel Ramirez APRN - Last Filed: 06/25/23 14:02> Related Data Home Medications: Home Medications Medication Instructions Recorded Confirmed lorazepam 0.5 mg tablet (Ativan) 0.5 mg PO DAILY PRN Seizures 01/14/21 12/04/22 multivitamin 1 tablet PO DAILY 01/14/21 12/04/22 clonazepam 1 mg tablet 1.5 mg PO DAILY 10/19/22 12/04/22 <Denzel Ramirez APRN - Last Filed: 06/25/23 14:02> Allergies/Adverse Reactions: Allergies Allergy/AdvReac Type Severity Reaction Status Date / Time Penicillins Allergy Unknown Rash Verified 12/04/22 10:07 <Denzel Ramirez APRN - Last Filed: 06/25/23 14:02> Review of Systems Review of Systems: Pertinent positives per HPI. Patient denies any fever, chills, rash, headache, visual changes, dizziness, cough, runny nose, sore throat, shortness of breath, chest pain, palpitations, nausea, vomiting, diarrhea, constipation, abdominal pain, or any urinary issues. <Denzel Ramirez APRN - Last Filed: 06/25/23 14:02> [facility] Past Medical History Medical History: Medical History Adenomatous colon polyp Encephalitis History of varicella as a child Hypertension Seizure disorder <Denzel Ramirez APRN - Last Filed: 06/25/23 14:02> Surgical History Surgical History: Surgical History History of placement of ear tubes (1983) <Denzel Ramirez APRN - Last Filed: 06/25/23 14:02> Family History Family History: Family History Mother Patient's mother is in good health Father Patient's father is in good health <Denzel Ramirez APRN - Last Filed: 06/25/23 14:02> Social History Social History: Social History Social History: Smoking history in distant past, denies alcohol use, admits to marijuana, states he has used drugs in the distant past but unable to tell me the name of the drug when he used it and where but he kept on pointing towards his nose. 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
[2023-06-25 10:22] LABS: Glucose Point of Care 110 mg/dl (65-105)
--- NOTE | 2023-06-25 10:22 | ECG_ITS ---
Measurements Intervals Hector Rate: 78 P: 68 MA: 184 QRS: -41 QRSD: 105 T: 52 QT: 385 QTc: 440 Interpretive Statements SINUS RHYTHM LEFT AXIS DEVIATION BORDERLINE AV CONDUCTION DELAY INCOMPLETE RIGHT BUNDLE BRANCH BLOCK BASELINE ARTIFACT- I, II, III, AVR, AVL, AVF, V1-V6 BORDERLINE ECG COMPARED TO ECG 06/24/2023 22:10:15 INCOMPLETE RIGHT BUNDLE-BRANCH BLOCK NOW PRESENT Electronically Signed On 06-25-2023 14:23:22 PUBLIC HEALTH SPECIALIST by Brannon Martinez D.O.
[2023-06-25 10:33] LABS: Basophils Percent Auto 0.4 % (0.2-1.2); Eosinophils Absolute Auto 0.1 K/mm3 (0-0.3); Hematocrit 45.2 % (42.0-52.0); Hemoglobin 15.6 g/dL (14.0-18.0); Immature Granulocyte Absolute 0.03 K/mm3 (0.00-0.031); Immature Granulocyte Percent A 0.3 % (0-0.5); Lymphocytes Absolute Auto 1.82 K/mm3 (0.9-3.2); Lymphocytes Percent Auto 19.5 % (18.3-44.2); Mean Corpuscular HGB Conc 34.5 g/dl (32-36); Mean Corpuscular Hemoglobin 33.8 pg (26-34); Mean Corpuscular Volume 97.8 fl (80-100); Mean Platelet Volume 9.8 fl (7.4-10.4); Monocytes Percent Auto 10.5 % (2.6-8.5); Neutrophils Absolute Auto 6.4 K/mm3 (1.3-6.7); Neutrophils Percent Auto 68.3 % (45.5-73.1); Platelet Count Result 261 k/mm3 (150-375); Red Blood Count 4.62 M/mm3 (4.6-6.20); White Blood Count 9.3 K/mm3 (4.5-10.0)
[2023-06-25] MEDS: SODIUM CHLORIDE 0.9% IV 1,000 ML 999 ML IV CONT (10:33)
[2023-06-25 10:45] LABS: Partial Thromboplastin Time 30.4 SECONDS (22.3-36.8); Prothrombin Time 13.8 Seconds (11.1-14.7)
[2023-06-25 10:47] LABS: Ethanol < 10 mg/dL (<10)
[2023-06-25 10:47] LABS: Acetaminophen < 10 ug/mL (10-30); Ammonia < 9 umol/L (9-30); Salicylate < 1.0 mg/dL (2-20)
[2023-06-25 10:51] LABS: Alanine Aminotransferase 26 U/L (6-50); Albumin Level 4.5 g/dL (3.5-5.1); Alkaline Phosphatase 50 U/L (38-126); Anion Gap 9 mmol/L (8-16); Aspartate Amino Transferase 23 U/L (17-59); Bilirubin,Total 0.5 mg/dL (0.2-1.3); Blood Urea Nitrogen 8 mg/dL (9-20); Calcium 9.4 mg/dL (8.4-10.2); Carbon Dioxide 26 mmol/L (22-30); Chloride 96 mmol/L (98-107); Creatine Kinase 352 U/L (55-170); Estimated CRCL calculation 103 ml/min; Estimated Glomerular Filt Rate > 60; Glucose 107 mg/dL (65-110); Potassium 3.5 mmol/L (3.4-5.0); Sodium 131 mmol/L (137-145)
[2023-06-25 11:03] LABS: Troponin I 0.034 ng/mL (0.000-0.034)
== END 2023-06-25 12:48 | disposition left against medical advice (07) ==
LOC: ANHED 10:59
PROVIDERS: Emergency Provider Nurse Practitioner Family; PCP Internal Medicine
DX: G40.909 Epilepsy, unspecified, not intractable, without status epilepticus (principal); E87.1 Hypo-osmolality and hyponatremia; R74.8 Abnormal levels of other serum enzymes; I10 Essential (primary) hypertension; Z86.010 Personal history of colon polyps; Z87.891 Personal history of nicotine dependence; I45.10 Unspecified right bundle-branch block; R94.31 Abnormal electrocardiogram [ECG] [EKG]
CPT/HCPCS: 36415; 80053; 80307; 82140; 82550; 82948; 84443; 84484; 85025; 85610; 85730; 93005; 96360; 99284; J7030

== ENCOUNTER 2023-12-03 11:58 | Outpatient (CLI) | payer MEDICARE, MEDICAID, SELFPAY ==
[2023-12-03 12:30] LABS: Basophils Percent Auto 0.6 % (0.2-1.2); Eosinophils Absolute Auto 0.2 K/mm3 (0-0.3); Eosinophils Percent Auto 3.3 % (0-4.4); Hematocrit 41.6 % (42.0-52.0); Hemoglobin 14.2 g/dL (14.0-18.0); Immature Granulocyte Absolute 0.02 K/mm3 (0.00-0.031); Immature Granulocyte Percent A 0.4 % (0-0.5); Lymphocytes Absolute Auto 1.37 K/mm3 (0.9-3.2); Lymphocytes Percent Auto 26.7 % (18.3-44.2); Mean Corpuscular HGB Conc 34.1 g/dl (32-36); Mean Corpuscular Hemoglobin 34.4 pg (26-34); Mean Corpuscular Volume 100.7 fl (80-100); Mean Platelet Volume 10.5 fl (7.4-10.4); Monocytes Absolute Auto 0.6 K/mm3 (0.1-0.6); Monocytes Percent Auto 11.3 % (2.6-8.5); Neutrophils Percent Auto 57.7 % (45.5-73.1); Platelet Count Result 195 k/mm3 (150-375); Red Blood Count 4.13 M/mm3 (4.6-6.20); Red Cell Distribution Width 13.2 % (11.5-14.5); White Blood Count 5.1 K/mm3 (4.5-10.0)
[2023-12-03 12:48] LABS: Alanine Aminotransferase 41 U/L (6-50); Albumin Level 4.3 g/dL (3.5-5.1); Alkaline Phosphatase 41 U/L (38-126); Anion Gap 5 mmol/L (4-12); Aspartate Amino Transferase 23 U/L (17-59); Bilirubin,Total 0.5 mg/dL (0.2-1.3); Blood Urea Nitrogen 14 mg/dL (9-20); Calcium 9.3 mg/dL (8.4-10.2); Carbon Dioxide 26 mmol/L (22-30); Chloride 105 mmol/L (98-107); Cholesterol 233 mg/dL (0-200); Estimated Glomerular Filt Rate > 60; Glucose 114 mg/dL (65-110); HDL Direct 54 mg/dL; Potassium 4.3 mmol/L (3.4-5.0); Sodium 136 mmol/L (137-145); Triglycerides 77 mg/dL (<150)
[2023-12-03 12:59] LABS: LDL Cholesterol Direct 139 mg/dL
== END 2023-12-03 11:59 | disposition home or self-care (01) ==
PROVIDERS: PCP Internal Medicine; Visit Provider Nurse Practitioner
DX: G40.909 Epilepsy, unspecified, not intractable, without status epilepticus (principal); E87.8 Other disorders of electrolyte and fluid balance, not elsewhere classified; R74.8 Abnormal levels of other serum enzymes; R73.9 Hyperglycemia, unspecified
CPT/HCPCS: 36415; 80053; 80061; 83036; 85025

== ENCOUNTER 2024-07-08 12:47 | Outpatient (CLI) | payer MEDICARE, MEDICAID, SELFPAY ==
[2024-07-08 16:21] LABS: Vitamin B12 > 1000.0 pg/mL (239-931)
[2024-07-09 14:28] LABS: Levetiracetam Keppra 62.9 mcg/mL (6.0-46.0)
[2024-07-10 20:04] LABS: Red Blood Cell Folate 577 ng/mL RBC (>280)
== END 2024-07-08 12:48 | disposition home or self-care (01) ==
LOC: ANHLAB 12:48
PROVIDERS: PCP Internal Medicine; Visit Provider Psychiatry & Neurology Neurology
DX: G40.909 Epilepsy, unspecified, not intractable, without status epilepticus (principal); E55.9 Vitamin D deficiency, unspecified
CPT/HCPCS: 36415; 80156; 80164; 80165; 80177; 82607; 82652; 82747; 83921

== ENCOUNTER 2025-02-20 09:52 | Emergency (ER) | payer MEDICARE, MEDICAID, SELFPAY ==
--- NOTE | ~2025-02-20 | XR_ITS ---
XR shoulder LT min 2V, XR humerus LT 02/20/2025 10:37 Indication: Left shoulder pain after fall Procedure: 4 views left shoulder and 2 views left humerus Comparison: No prior studies for comparison. Findings: There is a comminuted proximal left humeral fracture just below the humeral neck with displacement and varus angulation. Impression: 1: Comminuted proximal left humeral fracture just below the humeral neck with mild displacement and varus angulation. Reviewed, dictated and finalized at location O. Impression: 1: Comminuted proximal left humeral fracture just below the humeral neck with m ild displacement and varus angulation. Impression: 1: Comminuted proximal left humeral fracture just below the humeral neck with m ild displacement and varus angulation.
--- OUTSIDE RECORDS SUMMARY | 2025-02-20 09:56 | XMS_ITS | Encounter Summary ---
[facility] Address [address] [place] [address] Care Team Providers Care Frequency Checker Name Role Phone Not Found, Stl Primary Care Provider Unavailabl e Encounter Details Date Type Department Care Team (Late st Contact Info) Description 07/04/2004 Outpatient Historical Division of Neurology [address] [address] Jeyson Mckinley [facility] [address] [facility] [address] [place] [address] Social History Tobacco Use Types Packs/Day Years Used Date Smoking Tobacco: Never Assessed Sex and Gender Information Value Date Recorded Sex Assigned at Not on file 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
--- OUTSIDE RECORDS SUMMARY | 2025-02-20 09:56 | XMS_ITS | Encounter Summary ---
Author Organization [facility] Address [address] [place] [address] Care Team Providers Care Auditing Control Clerk Name Role Phone Not Found, Stl Primary Care Provider Unavailabl e Encounter Details Date Type Department Care Team (Latest Contact Info) Description 04/05/2000 Outpatient Historical [facility] Jeyson Mayorga MD [address] [facility] [address] [place] [address] Localization-related (focal) (partial) epilepsy and epileptic syndromes with complex partial seizures, without mention of intractable epilepsy (Primary Dx) Social History Tobacco Use Types Packs/Day Years Used Date Smoking Tobacco: Never Assessed Sex and Gender Information Value Date Recorded Sex Assigned at Not on file 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
--- OUTSIDE RECORDS SUMMARY | 2025-02-20 09:56 | XMS_ITS | Encounter Summary ---
Author Organization [facility] Address 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
--- OUTSIDE RECORDS SUMMARY | 2025-02-20 09:56 | XMS_ITS | Encounter Summary ---
Author Organization [facility] Address [address] [place] [address] Care Team Providers Care Advanced Practice Registered Nurse Name Role Phone Not Found, Stl Primary Care Provider Unavailabl e Encounter Details Date Type Department Care Team (Late st Contact Info) Description 12/24/2000 Outpatient Historical Division of Neurology [address] [address] Jeyson Mckinley MD [address] 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
--- OUTSIDE RECORDS SUMMARY | 2025-02-20 09:56 | XMS_ITS | Encounter Summary ---
Author Organization [facility] Address [address] [place] [address] Care Team Providers Care Axle Turner Name Role Phone Not Found, Stl Primary Care Provider Unavailabl e Encounter Details Date Type Department Care Team (Late st Contact Info) Description 06/26/2000 Outpatient Historical Division of Neurology [address] [address] Jeyson Mckinley MD [address] [facility] [address] [place] [address] Social History Tobacco Use Types Packs/Day Years Used Date Smoking Tobacco: Never Assessed Sex and Gender Information Value Date Recorded Sex Assigned at Not on file 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
--- OUTSIDE RECORDS SUMMARY | 2025-02-20 09:56 | XMS_ITS | Encounter Summary ---
Author Organization [facility] Address [address] [place] [address] Care Team Providers Care Supervisor Forming Department Name Role Phone Not Found, Stl Primary Care Provider Unavailabl e Encounter Details Date Type Department Care Team (Late st Contact Info) Description 04/05/2000 Outpatient Historical Division of Neurology [address] [address] Jeyson Mckinley MD [address] [facility] [address] [place] [address] Social History Tobacco Use Types Packs/Day Years Used Date Smoking Tobacco: Never Assessed Sex and Gender Information Value Date Recorded Sex Assigned at Not on file 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
--- OUTSIDE RECORDS SUMMARY | 2025-02-20 09:56 | XMS_ITS | Encounter Summary ---
Author Organization [facility] Address [address] [place] [address] Care Team Providers Care Concrete Block Plant Supervisor Name Role Phone Not Found, Stl Primary Care Provider Unavailabl e Encounter Details Date Type Department Care Team (Late st Contact Info) Description 03/20/2002 Outpatient Historical Division of Neurology [address] [address] Jeyson Mckinley MD [address] [address] [place] [address] Social History Tobacco Use Types Packs/Day Years Used Date Smoking Tobacco: Never Assessed Sex and Gender Information Value Date Recorded Sex Assigned at Not on file 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
--- OUTSIDE RECORDS SUMMARY | 2025-02-20 09:56 | XMS_ITS | Clinical Summary ---
Author Organization [facility] Address [address] [place] [address] Phone Care Team Providers Care Commissioning Engineer Name Role Phone Not Found, Stl Primary Care Provider Unavailabl e Allergies Active Allergy Reactions Criticality Noted Date Comments Penicillins Unknown 03/23/2016 Medications multivitamin (DAILY-YOCASTA) tablet Take 1 Tablet by mouth daily. Active divalproex (DEPAKOTE ER) 500 mg Extended Release 24 hour tablet TAKE 2 TABLETS BY MOUTH TWICE A DAY 120 Tablet 3 11/24/2016 Active clonazePAM (KlonoPIN) 1 mg tablet TAKE 1 TABLET BY MOUTH EVERY DAY IN THE MORNING AND TAKE 1 TABLET AT NOON 60 Tablet 3 03/21/2017 Active carBAMazepine (TEGretol) 200 mg tablet TAKE 1 TABLET BY MOUTH 3 TIMES A DAY 90 Tablet 5 03/26/2017 Active levETIRAcetam (KEPPRA) 750 mg Tablet TAKE 2 TABLETS BY MOUTH TWICE A DAY 120 Tablet 10/18/2018 Active Active Problems Problem Noted Date Diagnosed Date Urinary incontinence 02/05/2017 Tobacco use 03/23/2016 Epilepsy 07/17/2014 Seizure disorder Convulsions Generalized anxiety disorder Partial symptomatic epilepsy with complex partial seizures, intractable, without status epilepticus Immunizations Immunization Administration Dates Next Due (PNEUMOVAX 23)(50 YRS UP) PN EUMOCOCCAL POLYSACCHARIDE (PPV23) 0.5 ML, IM 04/17/2016 INFLUENZA VACCINE QUADRIVALENT 3 YR UP PF IM Influenza Seasonal Unspecified Formulation IM Social History Tobacco Use Types Packs/Day Years Used Date Smoking Tobacco: Some Days Cigarettes Smokeless Tobacco: Former Alcohol Use Standard Drinks/Week Comments No 0 (1 standard drink = 0.6 oz pur e alcohol) Sex and Gender Information Value Date Recorded Sex Assigned at Not on file 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 Gender Identity Not on file Sexual Orientation Not on file Last Filed Vital Signs Vital Sign Reading Time Taken Comments Blood Pressure 118/72 11/20/2017 3:25 PM CDT Pulse 78 11/20/2017 3:25 PM CDT Temperature 36.3 C (97.4 F) 04/20/2016 9:26 AM CDT Respiratory Rate 22 04/20/2016 9:26 AM CDT Oxygen Saturation 97% 11/20/2017 3:25 PM CDT Inhaled Oxygen Concentration - - Weight 92.5 kg (204 lb) 11/20/2017 3:25 PM CDT Height 175.3 cm (5' 9) 11/20/2017 3:25 PM CDT Body Mass Index 30.13 11/20/2017 3:25 PM CDT Plan of Treatment Health Maintenance Due Date Last Done Comments DTAP/TDAP/TD VACCINES (1 - Tdap) 1993 HEPATITIS B VACCINES (1 of 3 - 19+ 3-dose series) 1993 COLORECTAL SCREENING 2019 Colorectal Cancer Screening 2019 FIT-DNA Q 3 years 2019 FIT/FOBT Q 1 year 2019 Flex Sig/CT Colonography Q 5 years 2019 ZOSTER VACCINE (1 of 2) 02/23/2024 INFLUENZA VACCINE (#1) 2025 04/18/2016, 2014 Insurance MEDICARE PART A [place] B [place]ICAID [place] Advance Directives For more information, please contact: [phone] * Full Code (Latest Code Status on File) Date Activated Date Inactivated Comments 04/17/2016 9:05 AM 04/20/2016 3:11 PM * Full Code Date Activated Date Inactivated Comments 03/23/2016 6:20 PM 03/24/2016 8:35 PM Care Teams Commissioning Engineer Relationship Specialty Start Date End Date Not Found, Stl NO ADDRESS ON FILE PCP - General 11/05/14
--- OUTSIDE RECORDS SUMMARY | 2025-02-20 09:56 | XMS_ITS | Clinical Summary ---
Author Organization [facility] Address [address] [place] [address] Care Team Providers Care Guest Services Director Name Role Phone Lj Hawk DO Primary Care Provider [phone] Source Comments [facility],non-owned Affiliates and Associated Physician Practices is amultiple site organization consisting of ambulatory clinics and hospital sitesin [place], [place], [place]. This disclosure is being madepursuant to the Care Everywhere program and may not contain all information available regarding this patient. Last updated 18.[facility] Allergies Active Allergy Reactions Criticality Noted Date Comments Penicillins Urticaria Medium 04/21/2024 Medications * Be aware that medications may not be up to date on this document. Alwaysverify current medications with the patient. LORazepam (Ativan) 0.5 MG tablet Take 1 (one) tablet by mouth once daily as needed (seizures) 4 Active sildenafil (Revatio) 20 MG tablet Take 3 (three) tablets by mouth once daily as needed (as needed 1 hour prior to sexual activity) Active Multiple Vitamin (Daily Vites) TABS Take 1 (one) tablet by mouth once daily Active clonazePAM (KlonoPIN) 1 MG tablet Take 1 (one) tablet by mouth 2 times daily 60 tablet 4 Active carBAMazepine (TEGretol) 200 MG tablet Take 1 (one) tablet by mouth 3 times daily 270 tablet [address] (Depakote) 500 MG tablet Take 2 (two) tablets by mouth every 12 hours 180 tablet 3 5 Active levETIRAcetam (Keppra) 750 MG tablet Take 2 (two) tablets by mouth Every morning and lunchtime 360 tablet 3 5 Active levETIRAcetam (Keppra) 750 MG tablet Take 3 (three) tablets by mouth every evening 270 tablet 3 5 Active topiramate (Topamax) 50 MG tablet Take 1 (one) tablet by mouth every 12 hours 180 tablet 3 5 Active Active Problems Problem Noted Date Diagnosed Date Seizures 04/18/2024 Social History Tobacco Use Types Packs/Day Years Used Date Smoking Tobacco: Never Passive Smoke Exposure: Never Smokeless Tobacco: Never Tobacco Cessation:Counseling Given: No Alcohol Use Standard Drinks/Week Comments Not Currently 0 (1 standard drink = 0.6 oz pur e alcohol) AUDIT-C Answer Date Recorded Q1: How often do you have a drink containing alcohol? Never 04/22/2024 Q2: How many drinks containi ng alcohol do you have on a typical day when you are drinking? Patient does not drink Q3: How often do you have si x or more drinks on one occasion? Never 04/22/2024 Overall Financial Resource Strain (CARDIA) Answe r Date Recorded How hard is it for you to pa y for the very basics like food, housing, medical care, and heating? Very hard 04/21/2024 [facility] [place] [facility] Occupat ional Health - Occupational Stress Questionnaire Answer Date Recorded Do you feel stress - tense, restless, nervous, or anxious, or unable to sleep at night because your mind is troubled all the time - these days? To some extent 04/21/2024 Hunger Vital Sign Answer Date Recorded Within the past 12 months, y ou worried that your food would run out before you got the money to buy more. Never true 04/21/20 24 Within the past 12 months, t he food you bought just didn't last and you didn't have money to get more. Never true 04/21/2024 PRAPARE - Transportation Answer Date Re corded In the past 12 months, has l ack of transportation kept you from medical appointments or from getting medications? No 03/26 In the past 12 months, has l ack of transportation kept you from meetings, work, or from getting things needed for daily living? No 04/21/2024 Housing Stability Vital Sign Answer Oziel e Recorded In the last 12 months, was t here a time when you were not able to pay the mortgage or rent on time? No 04/22/2024 In the past 12 months, how m any times have you moved where you were living? 1 04/22/2024 At any time in the past [address] [facility], were you homeless or living in a snf (including now)? No 04/22/2024 Sex and Gender Information Value Date Recorded Sex Assigned at Not on file Legal Sex Male 9:22 AM CDT Gender Identity Not on file Sexual Orientation Not on file Last Filed Vital Signs Vital Sign Reading Time Taken Comments Blood Pressure 138/95 07/03/2024 2:46 PM LOT PORTER Pulse 71 07/03/2024 2:46 PM LOT PORTER Temperature 36.7 C (98 F) 04/24/2024 4:47 AM CDT Respiratory Rate 16 04/23/2024 9:43 PM CDT Oxygen Saturation 97% 04/24/2024 7:28 AM CDT Inhaled Oxygen Concentration - - Weight 82.1 kg (181 lb) 07/03/2024 2:46 PM LOT PORTER Height 172.7 cm (5' 8) 04/21/2024 5:35 PM CDT Body Mass Index 27.52 04/21/2024 5:35 PM CDT Plan of Treatment Health Maintenance Due Date Last Done Comments COLOGUARD (AGES 45-75) - COLON CA SCREENING 1974 COLON MONITORING 1974 COLONOSCOPY - COLON CA SCREENING 1974 CT COLONOGRAPHY - COLON CA SCREENING 1974 Colorectal Cancer Screening 1974 FIT - COLON CA SCREENING 1974 FLEX SIG - COLON CA SCREENING 1974 LIPID TESTING 1974 HIV SCREENING 1989 HEPATITIS C SCREENING 02/18/1992 DTAP/TDAP/TD VACCINES (1 - Tdap) 1993 HEPATITIS B VACCINE (1 of 3 - 19+ 3-dose series) 1993 PNEUMOCOCCAL VACCINE 50+ (1 of 1 - PCV) 02/23/2024 ZOSTER VACCINE (1 of 2) 02/23/2024 COVID-19 VACCINE (1 - season) 2024 DEPRESSION SCREENING 06/25/2024 MEDICARE AWV CALENDAR YEAR 2024 INFLUENZA VACCINE (#1) 2025 04/18/2016, 2014 SCREENING FOR DIABETES 04/21/2027 , 04/17/2016, 04/17/2016, Additional history exists HIB VACCINE Aged Out No longer eligi ble based on patient's age to complete this topic HPV VACCINE Aged Out No longer eligi ble based on patient's age to complete this topic MENINGOCOCCAL (Group B) VACCINE SHARED DECISION-MAKING Aged Out No longer eligible based on patient's age to complete this topic MENINGOCOCCAL GROUPS A/C/Y/W VACCINE Aged Out No longer eligible based on patient's age to complete this topic Procedures Procedure Name Priority Date/Time Associated Diagnosis Comments COMPREHENSIVE METABOLIC PANEL Routine 04/21/2024 4:07 PM CDT from Last 3 Months or Most Recently Relevant to Health Maintenance Results * (ABNORMAL) COMPREHENSIVE METABOLIC PANEL (04/21/2024 4:07 PM CDT) BUN 13 7 - 26 mg/dL 04/21/2024 4:58 PM [facility] Creatinine 0.58(L) 0.71 - 1.16 mg/dL 04/21/2024 4:58 PM [facility] Sodium 135(L) 136 - 145 mmol/L 04/21/2024 4:58 PM [facility] Potassium 4.1 3.5 - 4.5 mmol/L 04/21/2024 4:58 PM [facility] Chloride 106 98 - 107 mmol/L 04/21/2024 4:58 PM [facility] CO2 19(L) 22 - 29 mmol/L 04/21/2024 4:58 PM [facility] Glucose 86 70 - 99 mg/dL 04/21/2024 4:58 PM [facility] Calcium 8.7 8.4 - 10.2 mg/dL 04/21/2024 4:58 PM [facility] Protein Total 6.2 6.0 - 8.3 g/dL 04/21/2024 4:58 PM [facility] Albumin 3.7 3.4 - 5.0 g/dL 04/21/2024 4:58 PM [facility] Bilirubin Total 0.4 0.2 - 1.2 mg/dL 04/21/2024 4:58 PM [facility] Alkaline Phosphatase 33(L) 40 - 150 U/L 04/21/2024 4:58 PM [facility] ALT 50 5 - 55 U/L 04/21/2024 4:58 PM [facility] AST 24 5 - 34 U/L 04/21/2024 4:58 PM [facility] Anion Gap 10 6 - 16 04/21/2024 4:58 PM [facility] BUN/Creatinine Ratio 22 7 - 23 04/21/2024 4:58 PM [facility] Osmolality Calculated 279 275 - 295 mOsm/kg 04/21/2024 4:58 PM [facility] Albumin/Globulin Ratio 1.5 1.1 - 2.3 04/21/2024 4:58 PM [facility] eGFR by CKD-EPI >90 >=90 mL/min/1.7 3 m2 04/21/2024 4:58 PM [facility] Blood BLOOD SPECIMEN / Unknown Lab Venipuncture / Unknown 04/21/2024 4:07 PM CDT 04/21/2024 4:31 PM T us Florencia Grossman PA-C LAB - CHEMISTRY ORDERABLE S Final Result [facility] [address] [place] [address], [facility] [phone] from Last 3 Months or Most Recently Relevant to Health Maintenance Insurance [facility] MANAGED MEDICARE ADV Advance Directives * Full Code (Latest Code Status on File) Date Activated Date Inactivated Comments 04/21/2024 10:55 AM 04/24/2024 3:34 PM Care Teams Guest Services Director Relationship Specialty Start Date End Date Lj Hawk DO [address] [place] [id number] PCP - General Internal Medicine 05/14/24
--- OUTSIDE RECORDS SUMMARY | 2025-02-20 09:56 | XMS_ITS | Encounter Summary ---
Author Organization [facility] Address 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
--- OUTSIDE RECORDS SUMMARY | 2025-02-20 09:56 | XMS_ITS | Encounter Summary ---
Author Organization [facility] Address 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
--- OUTSIDE RECORDS SUMMARY | 2025-02-20 09:56 | XMS_ITS | Encounter Summary ---
Author Organization [facility] Address 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
--- OUTSIDE RECORDS SUMMARY | 2025-02-20 09:56 | XMS_ITS | Encounter Summary ---
Author Organization [facility] Address 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
--- OUTSIDE RECORDS SUMMARY | 2025-02-20 09:56 | XMS_ITS | Encounter Summary ---
Author Organization [facility] Address 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
--- OUTSIDE RECORDS SUMMARY | 2025-02-20 09:56 | XMS_ITS | Encounter Summary ---
Author Organization [facility] Address [address] [place] [address] Care Team Providers Care Geologic Technician Name Role Phone Not Found, Stl Primary Care Provider Unavailabl e Encounter Details Date Type Department Care Team (Late st Contact Info) Description 03/19/2003 Outpatient Historical Division of Neurology [address] [address] Jeyson Mckinley MD [address] [facility] [address] [place] [address] Social History Tobacco Use Types Packs/Day Years Used Date Smoking Tobacco: Never Assessed Sex and Gender Information Value Date Recorded Sex Assigned at Not on file Legal Sex Male 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
--- OUTSIDE RECORDS SUMMARY | 2025-02-20 09:56 | XMS_ITS | Encounter Summary ---
Author Organization [facility] Address [address] [place] [address] Care Team Providers Care Mechanical Manufacturing Engineer Name Role Phone Not Found, Stl Primary Care Provider Unavailabl e Encounter Details Date Type Department Care Team (Latest Contact Info) Description 12/05/2007 Outpatient Historical HIS [facility] Jeyson Mayorga MD [address] [facility] [address] [place] [address] Grand Mal, not Intractabl ([facility]) Social History Tobacco Use Types Packs/Day Years Used Date Smoking Tobacco: Never Assessed Sex and Gender Information Value Date Recorded Sex Assigned at Not on file 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 Gender Identity Not on file Sexual Orientation Not on file documented as of this encounter Plan of Treatment Not on file documented as of this encounter Procedures Procedure Name Priority Date/Time Associated Diagnosis Comments CARBAMAZEPINE LEVEL Routine 12/05/2007 3 :35 PM CDT documented in this encounter Results * CARBAMAZEPINE LEVEL (12/05/2007 3:35 PM CDT) CARBAMAZEPINE LEVEL 9.0 4.0 - 12.0 ug/mL [facility] Comment:Carbamazepine Toxic Level => 20 ug/mL Blood specimen (specimen) 12/05/2007 3:35 PM CDT 12/05/2007 4:21 PM CDT us Jeyson Mckinley MD CHEMISTRY ORDERABLES Final Resu lt [facility] CLIA# [id number] [address] [place] [address] documented in this encounter Visit Diagnoses Diagnosis 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
--- OUTSIDE RECORDS SUMMARY | 2025-02-20 09:56 | XMS_ITS | Encounter Summary ---
Author Organization [facility] Address 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
--- OUTSIDE RECORDS SUMMARY | 2025-02-20 09:56 | XMS_ITS | Encounter Summary ---
Author Organization [facility] Address 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
[2025-02-20 09:58] VITALS: BP 149/78; PULSE 83; RESP 17; TEMP 36.6; O2SAT 100
--- OUTSIDE RECORDS SUMMARY | 2025-02-20 10:49 | XMS_ITS | Encounter Summary ---
Author Organization [facility] Address [address] [place] [address] Care Team Providers Care Swimming Pool Cleaner Name Role Phone Not Found, Stl Primary Care Provider Unavailabl e Encounter Details Date Type Department Care Team (Late st Contact Info) Description 09/18/2006 Outpatient Historical Division of Neurology [address] [address] Jeyson Mckinley MD [address] [facility] [address] [place] [address] Social History Tobacco Use Types Packs/Day Years Used Date Smoking Tobacco: Never Assessed Sex and Gender Information Value Date Recorded Sex Assigned at Not on file 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
--- OUTSIDE RECORDS SUMMARY | 2025-02-20 10:49 | XMS_ITS | Encounter Summary ---
Author Organization [facility] Address [address] [place] [address] Care Team Providers Care Campus Security Director Name Role Phone Not Found, Stl Primary Care Provider Unavailabl e Encounter Details Date Type Department Care Team (Late st Contact Info) Description 12/24/2000 Outpatient Historical Division of Neurology [address] [address] Jeyson Mckinley MD [address] [facility] [address] [place] [address] Social History Tobacco Use Types Packs/Day Years Used Date Smoking Tobacco: Never Assessed Sex and Gender Information Value Date Recorded Sex Assigned at Not on file Legal Sex Male 2:[address] Gender Identity Not on file Sexual Orientation Not on file documented as of this encounter Plan of Treatment Not on file documented as of this encounter Visit Diagnoses Not on filedocumented in this encounter Care Teams Campus Security Director Relationship Specialty Start Date End Date Not Found, Stl NO ADDRESS ON FILE PCP - General 11/05/14 documented as of this encounter
--- OUTSIDE RECORDS SUMMARY | 2025-02-20 10:49 | XMS_ITS | Encounter Summary ---
Author Organization [facility] Address [address] [place] [address] Care Team Providers Care Table Keeper Name Role Phone Not Found, Stl Primary Care Provider Unavailabl e Encounter Details Date Type Department Care Team (Late st Contact Info) Description 03/19/2003 Outpatient Historical Division of Neurology [address] [address] Jeyson Mckinley MD [address] 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
--- OUTSIDE RECORDS SUMMARY | 2025-02-20 10:49 | XMS_ITS | Encounter Summary ---
Author Organization [facility] Address [address] [place] [address] Care Team Providers Care Photocopier Technician Name Role Phone Not Found, Stl Primary Care Provider Unavailabl e Encounter Details Date Type Department Care Team (Late st Contact Info) Description 03/20/2002 Outpatient Historical Division of Neurology [address] [address] Jeyson Mckinley MD [address] [facility] [address] [place] [address] Social History Tobacco Use Types Packs/Day Years Used Date Smoking Tobacco: Never Assessed Sex and Gender Information Value Date Recorded Sex Assigned at Not on file 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
--- OUTSIDE RECORDS SUMMARY | 2025-02-20 10:49 | XMS_ITS | Encounter Summary ---
Author Organization [facility] Address [address] [place] [address] Care Team Providers Care Soaking Room Operator Name Role Phone Not Found, Stl Primary Care Provider Unavailabl e Encounter Details Date Type Department Care Team (Late st Contact Info) Description 06/26/2000 Outpatient Historical Division of Neurology [address] [address] Jeyson Mckinley MD [address] [facility] [address] [place] [address] Social History Tobacco Use Types Packs/Day Years Used Date Smoking Tobacco: Never Assessed Sex and Gender Information Value Date Recorded Sex Assigned at Not on file Legal Sex Male 2:40 AM PACK CHANGER Gender Identity Not on file Sexual Orientation Not on file documented as of this encounter Plan of Treatment Not on file documented as of this encounter Visit Diagnoses Not on filedocumented in this encounter Care Teams Soaking Room Operator Relationship Specialty Start Date End Date Not Found, Stl NO ADDRESS ON FILE PCP - General 11/05/14 documented as of this encounter
--- OUTSIDE RECORDS SUMMARY | 2025-02-20 10:49 | XMS_ITS | Clinical Summary ---
Author Organization [facility] Address [address] [place] [address] Care Team Providers Care Upper Doubler Name Role Phone Lj Hawk DO Primary Care Provider [phone] Source Comments [facility],non-owned Affiliates and Associated Physician Practices is amultiple site organization consisting of ambulatory clinics and hospital sitesin [place], [place], [place] and [place]. This disclosure is being madepursuant to the Care Everywhere program and may not contain all information available regarding this patient. Last updated 18.[facility] Allergies Active Allergy Reactions Criticality Noted [...] medical care, and heating? Very hard 04/21/2024 [facility] [place] of Occupat ional Health - Occupational Stress [...] any time in the past 12 m [facility], were you homeless or living in a residential (including now)? No 04/22/2024 Sex and Gender Information Value Date Recorded Sex Assigned at Not on file Legal Sex Male 9:22 AM CDT Gender Identity Not on file Sexual Orientation Not on file Last Filed Vital Signs Vital Sign Reading Time Taken Comments Blood Pressure 138/95 07/03/2024 2:46 PM WATCH ASSEMBLER Pulse 71 07/03/2024 2:46 PM WATCH ASSEMBLER Temperature 36.7 C (98 F) 04/24/2024 4:47 AM CDT Respiratory Rate 16 04/23/2024 9:43 PM CDT Oxygen Saturation 97% 04/24/2024 7:28 AM CDT Inhaled Oxygen Concentration - - Weight 82.1 kg (181 lb) 07/03/2024 2:46 PM WATCH ASSEMBLER Height 172.7 cm (5' 8) 04/21/2024 5:35 [...] 7 - 26 mg/dL 04/21/2024 4:58 PM [facility] Creatinine 0.58(L) 0.71 - 1.16 mg/dL 04/21/2024 4:58 PM [facility] Sodium 135(L) 136 - 145 mmol/L 04/21/2024 4:58 PM [facility] Potassium 4.1 3.5 - 4.5 mmol/L 04/21/2024 4:58 PM [facility] Chloride 106 98 - 107 mmol/L 04/21/2024 4:58 PM [facility] CO2 19(L) 22 - 29 mmol/L 04/21/2024 4:58 PM [facility] Glucose 86 70 - 99 mg/dL 04/21/2024 4:58 PM [facility] Calcium 8.7 8.4 - 10.2 mg/dL 04/21/2024 4:58 PM [facility] Protein Total 6.2 6.0 - 8.3 g/dL 04/21/2024 4:58 PM [facility] Albumin 3.7 3.4 - 5.0 g/dL 04/21/2024 4:58 PM [facility] Bilirubin Total 0.4 0.2 - 1.2 mg/dL 04/21/2024 4:58 PM [facility] Alkaline Phosphatase 33(L) 40 - 150 U/L 04/21/2024 4:58 PM [facility] ALT 50 5 - 55 U/L 04/21/2024 4:58 PM [facility] AST 24 5 - 34 U/L 04/21/2024 4:58 PM [facility] Anion Gap 10 6 - 16 04/21/2024 4:58 PM [facility] BUN/Creatinine Ratio 22 7 - 23 04/21/2024 4:58 PM [facility] Osmolality Calculated 279 275 - 295 mOsm/kg 04/21/2024 4:58 PM [facility] Albumin/Globulin Ratio 1.5 1.1 - 2.3 04/21/2024 4:58 PM [facility] eGFR by CKD-EPI >90 >=90 mL/min/1.7 3 m2 04/21/2024 4:58 PM [facility] Blood BLOOD SPECIMEN / Unknown Lab Venipuncture / Unknown 04/21/2024 4:07 PM CDT 04/21/2024 4:31 PM T us Florencia Grossman PA-C LAB - CHEMISTRY ORDERABLE S Final Result [facility] [address] [place] [address], [facility] [phone] from Last 3 Months or Most Recently Relevant to Health Maintenance Insurance [facility] MANAGED MEDICARE ADV Advance Directives * Full Code (Latest Code Status on File) Date Activated Date Inactivated Comments 04/21/2024 10:55 AM 04/24/2024 3:34 PM Care Teams Upper Doubler Relationship Specialty Start Date End Date Lj Hawk DO [address] [place] [id number] PCP - General Internal Medicine 05/14/24
--- OUTSIDE RECORDS SUMMARY | 2025-02-20 10:49 | XMS_ITS | Encounter Summary ---
Author Organization [facility] Address 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) Social History Tobacco Use Types Packs/Day Years Used Date Smoking Tobacco: Never Assessed Sex and Gender Information Value Date Recorded Sex Assigned at Not on file 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
--- OUTSIDE RECORDS SUMMARY | 2025-02-20 10:49 | XMS_ITS | Encounter Summary ---
Author Organization [facility] Address [address] [place] [address] Care Team Providers Care Pearl Fisherman Name Role Phone Not Found, Stl Primary Care Provider Unavailabl e Encounter Details Date Type Department Care Team (Late st Contact Info) Description 07/04/2004 Outpatient Historical Division of Neurology [address] [address] Jeyson Mckinley MD [address] [facility] [address] [place] [address] Social History Tobacco Use Types Packs/Day Years Used Date Smoking Tobacco: Never Assessed Sex and Gender Information Value Date Recorded Sex Assigned at Not on file Legal Sex Male 2:40 AM TIPPLE GREASER Gender Identity Not on file Sexual Orientation Not on file documented as of this encounter Plan of Treatment Not on file documented as of this encounter Visit Diagnoses Not on filedocumented in this encounter Care Teams Pearl Fisherman Relationship Specialty Start Date End Date Not Found, Stl NO ADDRESS ON FILE PCP - General 11/05/14 documented as of this encounter
--- OUTSIDE RECORDS SUMMARY | 2025-02-20 10:49 | XMS_ITS | Encounter Summary ---
Author Organization [facility] Address [address] [place] [address] Care Team Providers Care Weld Technician Name Role Phone Not Found, Stl Primary Care Provider Unavailabl e Encounter Details Date Type Department Care Team (Latest Contact Info) Description 12/05/2007 Outpatient Historical HIS [facility] Jeyson Mayorga MD [address] [facility] [address] [place] [address] Grand Mal, not Intractabl ([facility]) Social History Tobacco Use Types Packs/Day Years Used Date Smoking Tobacco: Never Assessed Sex and Gender Information Value Date Recorded Sex Assigned at Not on file 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 Male 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 Gender Identity Not on file Sexual Orientation Not on file documented as of this encounter Plan of Treatment Not on file documented as of this encounter Procedures Procedure Name Priority Date/Time Associated Diagnosis Comments CARBAMAZEPINE LEVEL Routine 12/05/2007 3 :35 PM CDT documented in this encounter Results * CARBAMAZEPINE LEVEL (12/05/2007 3:35 PM CDT) CARBAMAZEPINE LEVEL 9.0 4.0 - 12.0 ug/mL [facility] Comment:Carbamazepine Toxic Level => 20 ug/mL Blood specimen (specimen) 12/05/2007 3:35 PM CDT 12/05/2007 4:21 PM CDT us Jeyson Mckinley MD CHEMISTRY ORDERABLES Final Resu lt [facility] CLIA# [id number] [address] [place] [address] documented in this encounter Visit Diagnoses Diagnosis 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
--- OUTSIDE RECORDS SUMMARY | 2025-02-20 10:50 | XMS_ITS | Encounter Summary ---
Author Organization [facility] Address 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
--- OUTSIDE RECORDS SUMMARY | 2025-02-20 10:50 | XMS_ITS | Clinical Summary ---
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
--- OUTSIDE RECORDS SUMMARY | 2025-02-20 10:50 | XMS_ITS | Encounter Summary ---
Author Organization [facility] Address [address] [place] [address] Care Team Providers Care Animal Caretaker Supervisor Name Role Phone Not Found, Stl Primary Care Provider Unavailabl e Encounter Details Date Type Department Care Team (Late st Contact Info) Description 04/05/2000 Outpatient Historical Division of Neurology [address] [address] Jeyson Mckinley MD [address] [facility] [address] [place] [address] Social History Tobacco Use Types Packs/Day Years Used Date Smoking Tobacco: Never Assessed Sex and Gender Information Value Date Recorded Sex Assigned at Not on file 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
--- OUTSIDE RECORDS SUMMARY | 2025-02-20 10:50 | XMS_ITS | Encounter Summary ---
Author Organization [facility] Address [address] [place] [address] Care Team Providers Care Store Warehouse Associate Name Role Phone Not Found, Stl Primary Care Provider Unavailabl e Encounter Details Date Type Department Care Team (Late st Contact Info) Description 09/04/2005 Outpatient Historical Division of Neurology [address] [address] Jeyson Mckinley MD [address] [facility] [address] [place] [address] Social History Tobacco Use Types Packs/Day Years Used Date Smoking Tobacco: Never Assessed Sex and Gender Information Value Date Recorded Sex Assigned at Not on file Legal Sex Male 2:[address] DEVELOPER Gender Identity Not on file Sexual Orientation Not on file documented as of this encounter Plan of Treatment Not on file documented as of this encounter Visit Diagnoses Not on filedocumented in this encounter Care Teams Store Warehouse Associate Relationship Specialty Start Date End Date Not Found, Stl NO ADDRESS ON FILE PCP - General 11/05/14 documented as of this encounter
--- OUTSIDE RECORDS SUMMARY | 2025-02-20 10:50 | XMS_ITS | Encounter Summary ---
Author Organization [facility] Address [address] [place] [address] Care Team Providers Care Machine Driller Name Role Phone Not Found, Stl Primary Care Provider Unavailabl e Encounter Details Date Type Department Care Team (Latest Contact Info) Description 03/03/1999 Outpatient Historical HIS [facility] Ayush Schrader Encounter for long-term (current) use of other medications (Primary Dx) Social History Tobacco Use Types Packs/Day Years Used Date Smoking Tobacco: Never Assessed Sex and Gender Information Value Date Recorded Sex Assigned at Not on file Legal Sex Male 2:40 AM THREAD SEPARATOR Gender Identity Not on file Sexual Orientation Not on file documented as of this encounter Plan of Treatment Not on file documented as of this encounter Visit Diagnoses Diagnosis Encounter for long-term (current) use of other medications- Primary documented in this encounter Care Teams Machine Driller Relationship Specialty Start Date End Date Not Found, Stl NO ADDRESS ON FILE PCP - General 11/05/14 documented as of this encounter
--- OUTSIDE RECORDS SUMMARY | 2025-02-20 10:50 | XMS_ITS | Encounter Summary ---
Author Organization [facility] Address 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
--- OUTSIDE RECORDS SUMMARY | 2025-02-20 10:50 | XMS_ITS | Encounter Summary ---
Author Organization [facility] Address 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
--- OUTSIDE RECORDS SUMMARY | 2025-02-20 10:50 | XMS_ITS | Encounter Summary ---
Author Organization [facility] Address [address] [place] [address] Care Team Providers Care Electronics Engineering Technologist Name Role Phone Not Found, Stl Primary [...] on file Legal Sex Male 2:40 AM PRESSER HAND Gender Identity Not on file Sexual Orientation Not on file documented as of this encounter Plan of Treatment Not on file documented as of this encounter Visit Diagnoses Diagnosis Unspecified epilepsy without mention of intractable epilepsy (CMS/HCC)- Primary Unspecified epilepsy without mention of intractable epilepsy documented in this encounter Care Teams Electronics Engineering Technologist Relationship Specialty Start Date End Date Not Found, Stl NO ADDRESS ON FILE PCP - General 11/05/14 documented as of this encounter
--- OUTSIDE RECORDS SUMMARY | 2025-02-20 10:50 | XMS_ITS | Encounter Summary ---
Author Organization [facility] Address [address] [place] [address] Care Team Providers Care Community Coordinator For High School Name Role Phone Not Found, Stl Primary Care Provider Unavailabl e Encounter Details Date Type Department Care Team (Latest Contact Info) Description 05/03/1998 Outpatient Historical HIS [facility] Ayush Schrader Unspecified tcp-crrobixdv-wkksb viral diseases of central nervous system (Primary Dx) Social History Tobacco Use Types Packs/Day Years Used Date Smoking Tobacco: Never Assessed Sex and Gender Information Value Date Recorded Sex Assigned at Not on file Legal Sex Male 2:40 AM HEALTH EVALUATOR Gender Identity Not on file Sexual Orientation Not on file documented as of this encounter Plan of Treatment Not on file documented as of this encounter Visit Diagnoses Diagnosis Unspecified ggm-[id number]-afwsk viral diseases of central nervous system- Primary documented in this encounter Care Teams Community Coordinator [employer] Relationship Specialty Start Date End Date Not Found, Stl NO ADDRESS ON FILE PCP - General 11/05/14 documented as of this encounter
[2025-02-20] MEDS: KETOROLAC (*BKC) 60 MG/2 ML VIAL IM (10:56)
[2025-02-20] MEDS: HYDROcodone/acetaminophen (*CRX) 5-325 MG TABLET 1 TAB PO (10:56)
--- NOTE | 2025-02-20 11:26 | ED_ITS ---
HPI - Extremity Injury (Upper) General Chief Complaint: Extremity Injury, Upper Stated Complaint: fell yesterday, left arm pain Time Seen by Provider: 02/20/25 10:17 Source: patient Mode of arrival: ambulatory Limitations: no limitations History of Present Illness HPI narrative: Patient is a 49-year-old male who presents the ED with report of left shoulder pain. Patient reports he was carrying laundry down his stairs last night and tripped on a bed sheet. He fell onto his left arm. He denies any head injury or LOC. Complains of pain to his left shoulder with bruising and swelling, limited range of motion. Denies numbness. Denies any other areas of pain. Has been taking ibuprofen at home without much improvement. Related Data Home Medications ?Medication ?Instructions ?Recorded ?Confirmed ?Last Taken ?Type multivitamin 1 tablet PO DAILY 01/14/21 0 07/17/24 03/08/21 History Allergies Allergy/AdvReac Type Severity Reaction Status Date / Time Penicillins Allergy Unknown Rash Verified 02/20/25 10:01 Review of Systems Review of Systems: All systems reviewed & are unremarkable except as noted in HPI. All systems reviewed & are unremarkable except as noted in HPI and below PMFSH Past Medical History Medical History Adenomatous colon polyp Hypertension Encephalitis History of varicella as a child Seizure disorder Surgical History Surgical History History of placement of ear tubes (1983) Family History Family History Mother Patient's mother is in good health Father Patient's father is in good health Social History Social History Social History: Smoking history in distant past, denies alcohol use, admits to marijuana, states he has used drugs in the distant past but unable to tell me the name of the drug when he used it and where but he kept on pointing towards his nose. On disability. 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 Years smoked: 20 Smoking status: Current every day smoker Tobacco type: cigarettes Alcohol intake: never Substance use: current Substance use type: marijuana Last use: medical; daily Do You Feel Safe in your Home?: Yes Lack of Transportation: No Lack of Food: Sometimes True Current Housing: I Have Housing Concerned About Future Housing: YES Difficulty Paying Gas/Electric Bills: No Difficulty Paying for Meds: No Currently Unemployed: No Education: Trade/Vocational Certificate Difficulty w/ Childcare or Family Care: No Living arrangements: with family Spiritual care concerns: No Exam Narrative: GENERAL: Well appearing, well-nourished, non-toxic, in no acute distress. HEAD: Normocephalic, atraumatic. RESPIRATORY: Airway patent, respirations nonlabored. Clear to auscultation bilaterally, no rales, rhonchi, wheezing. CARDIOVASCULAR: Regular rate and rhythm. Radial pulses intact and easily palpable MUSCULOSKELETAL: No gross deformities. Limited range of motion of left shoulder due to pain. Fullness, swelling, bruising redness to left anterior shoulder/proximal humerus region. Sensation intact throughout left upper extremity SKIN: Warm, dry, normal color. NEURO: A&O X3. Speech clear. Cranial nerves II-XII grossly intact. Steady gait. No ataxic movements. PSYCHIATRIC: Appropriate mood and affect. Normal interaction. Course Vital Signs Vital signs: Vital Signs Temperature 97.8 F 02/20/25 09:58 Pulse Rate 83 02/20/25 09:58 Respiratory Rate 17 02/20/25 09:58 Blood Pressure 149/78 H 02/20/25 09:58 Pulse Oximetry 100 02/20/25 09:58 Oxygen Delivery Room Air 02/20/25 09:58 Temperature 97.8 F 02/20/25 09:58 Pulse Rate 83 02/20/25 09:58 Respiratory Rate 17 02/20/25 09:58 Blood Pressure 149/78 H 02/20/25 09:58 Pulse Oximetry 100 02/20/25 09:58 Oxygen Delivery Room Air 02/20/25 09:58 MDM - Extremity Injury (Upper) MDM Narrative Medical decision making narrative: Patient's injury is consistent with musculoskeletal etiology. No signs of neurologic or vascular compromise on physical examination. Compartments are soft without signs of compartment syndrome. XR of left shoulder showing: Impression: 1: Comminuted proximal left humeral fracture just below the humeral neck with mild displacement and varus angulation. Pain is consistent with exam and injury. Discussed case with Dr. Mcqueen, orthopedics, advised discussion with tertiary center regarding f/u/surgical management. Recommended shoulder immobilizer. Discussed case with [facility], given information for orthopedic follow-up. Patient to call orthopedic office to arrange for follow-up. Patient placed in shoulder immobilizer. Pain medications sent to pharmacy. Discussed rice therapy, strict return precautions. Patient in agreement with plan. Discharged in stable condition. Medical Records Attestation: I reviewed the patient's medical records. Imaging Data Attestation: I personally reviewed and interpreted this imaging study as follows: Radiologist's impression: ITS Impressions Humerus X-Ray 02/20/25 10:40 Impression: 1: Comminuted proximal left humeral fracture just below the humeral neck with mild displacement and varus angulation. Shoulder X-Ray 02/20/25 10:40 Impression: 1: Comminuted proximal left humeral fracture just below the humeral neck with mild displacement and varus angulation. Discharge Plan Discharge Clinical Impression: Fracture of proximal end of left humerus Qualifiers: Encounter type: initial encounter Fracture type: closed Fracture morphology: unspecified fracture morphology Qualified Code(s): S42.202A - Unspecified fracture of upper end of left humerus, initial encounter for closed fracture Fall down stairs Qualifiers: Encounter type: initial encounter Qualified Code(s): W10.8XXA - Fall (on) (from) other stairs and steps, initial encounter Patient Disposition: Home Condition: Stable Instructions: Antibiotic Form, P.R.I.C.E. Treatment (ED), Proximal Humerus Fracture (ED), Shoulder Immobilizer (ED) Additional Instructions: FOLLOW UP WITH [facility] FOR FURTHER EVALUATION AND MANAGEMENT OF FRACTURE. CALL OFFICE AT [phone] Recommend Tylenol and ibuprofen around the clock as needed for pain. You may take 600 mg of ibuprofen and 1000 mg of Tylenol every 6 hours as needed. Recommend oxycodone as needed for more severe pain. Recommend frequent icing to left shoulder. Wear shoulder immobilizer at all times. You may remove this when bathing. Avoid use of arm. Return to the ED if you experience worsening or severe pain or swelling, recurrent injury, numbness of arm, or any other symptoms of concern. Patient Language: Bulgarian Prescriptions: New oxycodone 5 mg tablet 5 mg PO Q6H PRN (Reason: pain) Qty: 20 0RF No Action multivitamin Tablet 1 tablet PO DAILY carbamazepine 200 mg tablet See Rx Instructions .ROUTE .COMPLEX Qty: 90 1RF Dose Instruction: TAKE ONE TABLET BY MOUTH 3 TIMES A DAY Rx Instructions: TAKE ONE TABLET BY MOUTH 3 TIMES A DAY sildenafil (pulm.hypertension) 20 mg tablet 60 mg PO DAILY MDD 100mg per 24 hours PRN (Reason: sexual activity) Qty: 30 1RF divalproex [Depakote] 500 mg tablet,delayed release (DR/EC) 1,000 mg PO Q12H Qty: 120 5RF topiramate [Topamax] 50 mg tablet 50 mg PO BID Qty: 60 5RF clonazepam 1 mg tablet 1.5 mg PO DAILY Qty: 45 4RF Rx Instructions: takes 1 tab in the am, and 1/2 tab at noon levetiracetam [Keppra] 750 mg tablet 750 mg PO .COMPLEX Qty: 300 5RF Rx Instructions: 750 mg orally; 2 tablets in the morning, 2 tablets midday, 3 tablets at night. Follow-up/Referrals: Lj Hawk DO [Primary Care Provider, Internal Medicine] Time of Disposition: 11:29
== END 2025-02-20 12:11 | disposition home or self-care (01) ==
PROVIDERS: Emergency Provider Physician Assistant; PCP Internal Medicine
DX: S42.212A Unspecified displaced fracture of surgical neck of left humerus, initial encounter for closed fracture (principal); I10 Essential (primary) hypertension; G40.909 Epilepsy, unspecified, not intractable, without status epilepticus; F17.210 Nicotine dependence, cigarettes, uncomplicated; Z86.0101 Personal history of adenomatous and serrated colon polyps; W10.9XXA Fall (on) (from) unspecified stairs and steps, initial encounter
CPT/HCPCS: 73030; 73060; 96372; 99284; A9270; J1885

== ENCOUNTER 2025-03-09 14:59 | Outpatient (CLI) | payer MEDICARE, MEDICAID, SELFPAY ==
[2025-03-09 15:28] LABS: Hematocrit 41.5 % (42.0-52.0); Hemoglobin 13.8 g/dL (14.0-18.0); Immature Granulocyte Percent A 0.9 % (0-0.5); Lymphocytes Absolute Auto 1.74 K/mm3 (0.9-3.2); Mean Corpuscular HGB Conc 33.3 g/dl (32-36); Mean Corpuscular Hemoglobin 34.3 pg (26-34); Mean Corpuscular Volume 103.2 fl (80-100); Nucleated Red Blood Cells Absolute Auto 0.000 K/mm3 (0.0-0.012); Nucleated Red Blood Cells Perc 0.0 % (0.0-0.2); Platelet Count Result 363 k/mm3 (150-375); Red Blood Count 4.02 M/mm3 (4.6-6.20); White Blood Count 7.8 K/mm3 (4.5-10.0)
[2025-03-09 15:39] LABS: Alanine Aminotransferase 18 U/L (6-50); Albumin Level 4.4 g/dL (3.5-5.1); Alkaline Phosphatase 82 U/L (38-126); Anion Gap 10 mmol/L (4-12); Aspartate Amino Transferase 24 U/L (17-59); Bilirubin,Total 0.6 mg/dL (0.2-1.3); Blood Urea Nitrogen 15 mg/dL (9-20); Calcium 9.8 mg/dL (8.4-10.2); Carbon Dioxide 25 mmol/L (22-30); Chloride 106 mmol/L (98-107); Estimated Glomerular Filt Rate > 60; Glucose 102 mg/dL (65-110); Potassium 4.8 mmol/L (3.4-5.0); Sodium 141 mmol/L (137-145); Total Protein 7.9 g/dL (6.3-8.2)
--- OUTSIDE RECORDS SUMMARY | 2025-03-09 17:57 | XMS_ITS | Encounter Summary ---
Author Organization [facility] Address 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
--- OUTSIDE RECORDS SUMMARY | 2025-03-09 17:57 | XMS_ITS | Encounter Summary ---
Author Organization [facility] Address [address] [place] [address] Care Team Providers Care Water Jet Operator Name Role Phone Not Found, Stl Primary Care Provider Unavailabl e Encounter Details Date Type Department Care Team (Latest Contact Info) Description 12/05/2007 Outpatient Historical HIS [facility] Jeyson Mayorga MD [address] [place] [address] Grand Mal, not Intractabl ([facility]) Social History Tobacco Use Types Packs/Day Years Used Date Smoking Tobacco: Never Assessed Sex and Gender Information Value Date Recorded Sex Assigned at Not on file 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 Sex 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 Gender Identity Not on file Sexual Orientation Not on file documented as of this encounter Plan of Treatment Not on file documented as of this encounter Procedures Procedure Name Priority Date/Time Associated Diagnosis Comments CARBAMAZEPINE LEVEL Routine 12/05/2007 3 :35 PM CDT documented in this encounter Results * CARBAMAZEPINE LEVEL (12/05/2007 3:35 PM CDT) CARBAMAZEPINE LEVEL 9.0 4.0 - 12.0 ug/mL [facility] Comment:Carbamazepine Toxic Level => 20 ug/mL Blood specimen (specimen) 12/05/2007 3:35 PM CDT 12/05/2007 4:21 PM CDT us Jeyson Mckinley MD CHEMISTRY ORDERABLES Final Resu lt [facility] CLIA# [id number] [address] [place], [place] [address] documented in this encounter Visit Diagnoses Diagnosis 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
--- OUTSIDE RECORDS SUMMARY | 2025-03-09 17:57 | XMS_ITS | Encounter Summary ---
Author Organization [facility] Address 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
--- OUTSIDE RECORDS SUMMARY | 2025-03-09 17:57 | XMS_ITS | Encounter Summary ---
Author Organization [facility] Address [address] [place] [address] Care Team Providers Care Landfill Gas Collection Operator Name Role Phone Not Found, Stl Primary Care Provider Unavailabl e Encounter Details Date Type Department Care Team (Late st Contact Info) Description 09/18/2006 Outpatient Historical Division of Neurology [address] [address] Jeyson Mckinley MD [address] [address] [place] [address] Social History Tobacco Use Types Packs/Day Years Used Date Smoking Tobacco: Never Assessed Sex and Gender Information Value Date Recorded Sex Assigned at Not on file Legal Sex Male 2: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
--- OUTSIDE RECORDS SUMMARY | 2025-03-09 17:57 | XMS_ITS | Clinical Summary ---
Author Organization [facility] Address [address] [place] [address] Care Team Providers Care Pourer Crane Ladle Name Role Phone Lj Hawk DO Primary Care Provider [phone] Source Comments [facility],non-owned Affiliates and Associated Physician Practices is amultiple site organization consisting of ambulatory clinics and hospital sitesin [place], [place], [place] and [place]. This disclosure is being madepursuant to the Care Everywhere program and may not contain all information available regarding this patient. Last updated 18.[facility] Allergies Active Allergy Reactions [...] medical care, and heating? Very hard 04/21/2024 [facility] [place] [facility] Occupat ional Health - Occupational Stress [...] any time in the past 12 m [facility], were you homeless or living in a snf (including now)? No 04/22/2024 Sex and Gender Information Value Date Recorded Sex Assigned at Not on file Legal Sex Male 9:22 AM CDT Gender Identity Not on file Sexual Orientation Not on file Last Filed Vital Signs Vital Sign Reading Time Taken Comments Blood Pressure 138/95 07/03/2024 2:46 PM TANK TRUCK LOADER Pulse 71 07/03/2024 2:46 PM TANK TRUCK LOADER Temperature 36.7 C (98 F) 04/24/2024 4:47 AM CDT Respiratory Rate 16 04/23/2024 9:43 PM CDT Oxygen Saturation 97% 04/24/2024 7:28 AM CDT Inhaled Oxygen Concentration - - Weight 82.1 kg (181 lb) 07/03/2024 2:46 PM TANK TRUCK LOADER Height 172.7 cm (5' 8) 04/21/2024 5:35 PM CDT Body Mass Index 27.52 04/21/2024 5:35 PM CDT Plan of Treatment Health Maintenance Due Date Last Done Comments COLOGUARD (AGES 45-75) - COL ON CA SCREENING 1974 COLON MONITORING 1974 COLONOSCOPY [...] 02/23/2024 ZOSTER VACCINE (1 of 2) 02/23/2024 DEPRESSION SCREENING 06/25/2024 MEDICARE AWV CALENDAR YEAR 2024 COVID-19 VACCINE (1 - 2023-2 5 season) 2025 INFLUENZA VACCINE (#1) 2025 6, 02/23/2015 SCREENING FOR DIABETES 04/21/2027 04/21/2024 HIB VACCINE Aged Out No longer eligi ble based on patient's age to complete this topic HPV VACCINE Aged Out No longer eligi ble based on patient's age to complete this topic MENINGOCOCCAL (Group B) VACCINE SHARED DECISION-MAKING Aged Out No longer eligible based on patient's age to complete this topic MENINGOCOCCAL GROUPS A/C/Y/W VACCINE Aged Out No longer eligible b ased on patient's age to complete this topic Procedures Procedure Name Priority Date/Time Associated Diagnosis Comments COMPREHENSIVE METABOLIC PANEL Routine 04/21/2024 4:07 PM CDT from Last 3 Months or Most Recently Relevant to Health Maintenance Results * (ABNORMAL) COMPREHENSIVE METABOLIC PANEL (04/21/2024 4:07 PM CDT) BUN 13 7 - 26 mg/dL 04/21/2024 4:58 PM [facility] Creatinine 0.58(L) 0.71 - 1.16 mg/dL 04/21/2024 4:58 PM [facility] Sodium 135(L) 136 - 145 mmol/L 04/21/2024 4:58 PM [facility] Potassium 4.1 3.5 - 4.5 mmol/L 04/21/2024 4:58 PM [facility] Chloride 106 98 - 107 mmol/L 04/21/2024 4:58 PM [facility] CO2 19(L) 22 - 29 mmol/L 04/21/2024 4:58 PM [facility] Glucose 86 70 - 99 mg/dL 04/21/2024 4:58 PM [facility] Calcium 8.7 8.4 - 10.2 mg/dL 04/21/2024 4:58 PM [facility] Protein Total 6.2 6.0 - 8.3 g/dL 04/21/2024 4:58 PM [facility] Albumin 3.7 3.4 - 5.0 g/dL 04/21/2024 4:58 PM [facility] Bilirubin Total 0.4 0.2 - 1.2 mg/dL 04/21/2024 4:58 PM [facility] Alkaline Phosphatase 33(L) 40 - 150 U/L 04/21/2024 4:58 PM [facility] ALT 50 5 - 55 U/L 04/21/2024 4:58 PM [facility] AST 24 5 - 34 U/L 04/21/2024 4:58 PM [facility] Anion Gap 10 6 - 16 04/21/2024 4:58 PM [facility] BUN/Creatinine Ratio 22 7 - 23 04/21/2024 4:58 PM [facility] Osmolality Calculated 279 275 - 295 mOsm/kg 04/21/2024 4:58 PM [facility] Albumin/Globulin Ratio 1.5 1.1 - 2.3 04/21/2024 4:58 PM [facility] eGFR by CKD-EPI >90 >=90 mL/min/1.7 3 m2 04/21/2024 4:58 PM [facility] Blood BLOOD SPECIMEN / Unknown Lab Venipuncture / Unknown 04/21/2024 4:07 PM CDT 04/21/2024 4:31 PM [facility] Florencia Grossman PA-C LAB - CHEMISTRY ORDERABLE S Final Result [facility] [address] [place] [address], [facility] [phone] from Last 3 Months or Most Recently Relevant to Health Maintenance Insurance [place] [id number] [facility] MANAGED MEDICARE ADV Advance Directives * Full Code (Latest Code Status on File) Date Activated Date Inactivated Comments 04/21/2024 10:55 AM 04/24/2024 3:34 PM Care Teams Pourer Crane Ladle Relationship Specialty Start Date End Date Lj Hawk DO [address] [place] [id number] PCP - General Internal Medicine 05/14/24
--- OUTSIDE RECORDS SUMMARY | 2025-03-09 17:57 | XMS_ITS | Encounter Summary ---
Author Organization [facility] Address [address] [place] [address] Care Team Providers Care Milk House Worker Name Role Phone Not Found, Stl Primary Care Provider Unavailabl e Encounter Details Date Type Department Care Team (Late st Contact Info) Description 03/20/2002 Outpatient Historical Division of Neurology [address] [address] Jeyson Mckinley MD [address] [facility] [address] [place] [address] Social History Tobacco Use Types Packs/Day Years Used Date Smoking Tobacco: Never Assessed Sex and Gender Information Value Date Recorded Sex Assigned at Not on file Legal Sex Male 2:40 AM LEGAL WRITING PROFESSOR Gender Identity Not on file Sexual Orientation Not on file documented as of this encounter Plan of Treatment Not on file documented as of this encounter Visit Diagnoses Not on filedocumented in this encounter Care Teams Milk House Worker Relationship Specialty Start Date End Date Not Found, Stl NO ADDRESS ON FILE PCP - General 11/05/14 documented as of this encounter
--- OUTSIDE RECORDS SUMMARY | 2025-03-09 17:57 | XMS_ITS | Encounter Summary ---
Author Organization [facility] Address [address] [place] [address] Care Team Providers Care Vault Service Mechanic Name Role Phone Not Found, Stl Primary Care Provider Unavailabl e Encounter Details Date Type Department Care Team (Late st Contact Info) Description 09/04/2005 Outpatient Historical Division of Neurology [address] [address] [facility]yson Mckinley MD [address] [facility] [address] [place] [address] Social History Tobacco Use Types Packs/Day Years Used Date Smoking Tobacco: Never Assessed Sex and Gender Information Value Date Recorded Sex Assigned at Not on file Legal Sex Male 2:40 AM 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
--- OUTSIDE RECORDS SUMMARY | 2025-03-09 17:57 | XMS_ITS | Encounter Summary ---
Author Organization [facility] [place] Address 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
--- OUTSIDE RECORDS SUMMARY | 2025-03-09 17:57 | XMS_ITS | Encounter Summary ---
Author Organization [facility] Address [address] [place] [address] Care Team Providers Care Weight And Test Bar Clerk Name Role Phone Not Found, Stl Primary Care Provider Unavailabl e Encounter Details Date Type Department Care Team (Latest Contact Info) Description 04/05/2000 Outpatient Historical [facility] Jeyson Mayorga MD [address] [facility] [address] [place] [address] Localization-related (focal) (partial) epilepsy and epileptic syndromes with complex partial seizures, without mention of intractable epilepsy (Primary Dx) Social History Tobacco Use Types Packs/Day Years Used Date Smoking Tobacco: Never Assessed Sex and Gender Information Value Date Recorded Sex Assigned at Not on file 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
--- OUTSIDE RECORDS SUMMARY | 2025-03-09 17:57 | XMS_ITS | Encounter Summary ---
Author Organization [facility] Address 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
--- OUTSIDE RECORDS SUMMARY | 2025-03-09 17:57 | XMS_ITS | Encounter Summary ---
Author Organization [facility] Address [address] [place] [address] Care Team Providers Care Bucket Wash Operator Name Role Phone Not Found, Stl Primary Care Provider Unavailabl e Encounter Details Date Type Department Care Team (Late st Contact Info) Description 03/19/2003 Outpatient Historical Division of Neurology [address] [address] Jeyson Mckinley MD [address] [facility] [address] [place] [address] Social History Tobacco Use Types Packs/Day Years Used Date Smoking Tobacco: Never Assessed Sex and Gender Information Value Date Recorded Sex Assigned at Not on file 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
--- OUTSIDE RECORDS SUMMARY | 2025-03-09 17:57 | XMS_ITS | Encounter Summary ---
Author Organization [facility] Address [address] [place] [address] Care Team Providers Care Operating Engineer Name Role Phone Not Found, Stl Primary Care Provider Unavailabl e Encounter Details Date Type Department Care Team (Late st Contact Info) Description 06/26/2000 Outpatient Historical Division of Neurology [address] [address] Jeyson Mckinley MD [address] [facility] [address] [place] [address] Social History Tobacco Use Types Packs/Day Years Used Date Smoking Tobacco: Never Assessed Sex and Gender Information Value Date Recorded Sex Assigned at Not on file 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
--- OUTSIDE RECORDS SUMMARY | 2025-03-09 17:57 | XMS_ITS | Encounter Summary ---
Author Organization [facility] Address 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
--- OUTSIDE RECORDS SUMMARY | 2025-03-09 17:57 | XMS_ITS | Encounter Summary ---
Author Organization [facility] Address [address] [place] [address] Care Team Providers Care Director Of Neighborhood Service Center Name Role Phone Not Found, Stl Primary Care Provider Unavailabl e Encounter Details Date Type Department Care Team (Late st Contact Info) Description 04/05/2000 Outpatient Historical Division of Neurology [address] [address] Jeyson [facility]ckinley MD [address] [facility] [address] [place] [address] Social History Tobacco Use Types Packs/Day Years Used Date Smoking Tobacco: Never Assessed Sex and Gender Information Value Date Recorded Sex Assigned at Not on file 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
--- OUTSIDE RECORDS SUMMARY | 2025-03-09 17:57 | XMS_ITS | Clinical Summary ---
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
--- OUTSIDE RECORDS SUMMARY | 2025-03-09 17:57 | XMS_ITS | Encounter Summary ---
Author Organization [facility] Address [address] [place] [address] Care Team Providers Care Master Electrician Name Role Phone Not Found, Stl Primary Care Provider Unavailabl e Encounter Details Date Type Department Care Team (Late st Contact Info) Description 07/04/2004 Outpatient Historical Division of Neurology [address] [address] Jeyson Mckinley MD [address] [facility] [address] [place] [address] Social History Tobacco Use Types Packs/Day Years Used Date Smoking Tobacco: Never Assessed Sex and Gender Information Value Date Recorded Sex Assigned at Not on file 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
--- OUTSIDE RECORDS SUMMARY | 2025-03-09 17:57 | XMS_ITS | Encounter Summary ---
Author Organization [facility] Address 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
--- OUTSIDE RECORDS SUMMARY | 2025-03-09 17:57 | XMS_ITS | Encounter Summary ---
Author Organization [facility] Address [address] [place] [address] Care Team Providers Care Decorating Consultant Name Role Phone Not Found, Stl Primary Care Provider Unavailabl e Encounter Details Date Type Department Care Team (Late st Contact Info) Description 12/24/2000 Outpatient Historical Division of Neurology [address] [address] Jeyson Mckinley MD [address] [facility] [address] [place] [address] Social History Tobacco Use Types Packs/Day Years Used Date Smoking Tobacco: Never Assessed Sex and Gender Information Value Date Recorded Sex Assigned at Not on file 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
[2025-03-12 16:08] LABS: Valproic Acid (Depakote),T 44 ug/mL (50-100)
== END 2025-03-09 15:00 | disposition home or self-care (01) ==
PROVIDERS: PCP Internal Medicine; Visit Provider Psychiatry & Neurology Neurology
DX: G40.909 Epilepsy, unspecified, not intractable, without status epilepticus (principal)
CPT/HCPCS: 36415; 80053; 80164; 80165; 80177; 85025